=== PATIENT | male | born 1955 | race Caucasian/White ===

== ENCOUNTER 2019-10-21 11:51 | Outpatient (CLI) | payer OTHER ==
--- NOTE | 2019-10-21 12:19 | RAD ---
Exam: Single view of the chest and 2 views of the abdomen HISTORY: Abdominal pain COMPARISON: None FINDINGS: 2 views of the abdomen and a single view the chest shows a nonspecific, nonobstructive nohemi l gas pattern. Air is seen to the level of the rectum. No free air or air-fluid levels are seen on decubitus examination. The cardiomediastinal silhouette is normal in size. There is no evidence of consolidation, mass, or p leural effusion. IMPRESSION: Nonobstructive bowel gas pattern
== END 2019-10-21 11:52 | disposition home or self-care (01) ==
LOC: RAD 11:51
PROVIDERS: ATTEND Physical Medicine & Rehabilitation
DX: R10.9 Unspecified abdominal pain (principal); E11.9 Type 2 diabetes mellitus without complications; I10 Essential (primary) hypertension; G81.94 Hemiplegia, unspecified affecting left nondominant side
CPT/HCPCS: 74022

== ENCOUNTER 2020-02-08 12:09 | Inpatient (IN) | payer OTHER, SELFPAY ==
[2020-02-08] MEDS ORDERED: EPINEPHrine 1 MG/10 ML Abboject SYRINGE ONE (12:14)
--- NOTE | 2020-02-08 12:47 | RAD ---
EXAM: XR Chest 1 View Portable PROVIDED CLINICAL HISTORY: Altered mental status COMPARISON: 10/17/2019 FINDINGS: Cardiac and mediastinal silhouette is within normal limits. Bilateral lower lobe airspace disease. En dotracheal tube is noted, tip of which approximates will. Enteric catheter is noted, tip of which overlies left upper quadrant. Right subclavian central line, tip of which overlies expected location of SVC. No pleural fluid or pneumothorax apparent with limitations due to supine nature of study. IMPRESSION: 1. ET tube positioning as above. 2. Bilateral lower lobe airspace disease, compatible with pneumonia.
[2020-02-08 12:50] LABS: Actual Bicarbonate (HCO3a) 8.8 mEq/L (22-28); Analyzer IN Cardio ER; Base Excess (BEa) -23.9 mEq/L (-2.0 to +3.0); CO2 Tension 46.3 mmHg (35.0-45.0); Carboxyhemoglobin (COHb) 0.3 gm% (0.0-3.0); Hemoglobin (Hb) 12.8 g/dL (14.0-18.0); O2 Tension (PaO2), arterial 92.3 mmHg (> 80.0); Potassium - ABG Lab 7.35 mmol/L (3.70-5.30)
[2020-02-08] MEDS ORDERED: Cefepime 2 GM VIAL ONE (13:03)
[2020-02-08 13:11] LABS: ALT (SGPT) 7 U/L (8-55); AST (SGOT) 8 U/L (5-34); Albumin 3.1 g/dL (3.4-4.8); Alkaline Phosphatase 75 U/L (40-110); Anion Gap 32 mmol/L (10-20); Bilirubin, Total 0.3 mg/dL (0.2-1.2); CK (CPK) 87 U/L (30-200); Calc. Creatinine Clearance 0 mL/min (70-130); Calcium 8.4 mg/dL (7.8-10.44); Chloride 109 mmol/L (98-107); Estimated GFR-MDRD 5; Globulin 2.3 g/dL (2.4-3.5); Glucose 264 mg/dL (80-115); Protein, Total 5.4 g/dL (5.8-8.1); Sodium 141 mmol/L (136-145)
[2020-02-08 13:16] LABS: Carbon Dioxide 8 mmol/L (23-31); Potassium 8.1 mmol/L (3.5-5.1)
[2020-02-08 13:19] LABS: Hemoglobin 11.9 g/dL (14.0-18.0); Mean Corpuscular HGB CONC 30.7 g/dL (32.0-36.0); Mean Corpuscular Hemoglobin 30.7 pg (27.0-31.0); Platelet Count 319 thou/uL (130-400); RBC Distribution Width 12.5 % (11.5-14.5); Red Blood Cell (RBC) Count 3.89 mill/uL (4.70-6.10); White Blood Cell (WBC) Count 13.9 thou/uL (4.8-10.8)
[2020-02-08 13:23] LABS: BUN (Urea Nitrogen) 135 mg/dL (8.4-25.7)
[2020-02-08 13:24] LABS: Band 47 % (5-11); Hypochromia SLIGHT = 6-15 cells (100X) (0-5/hpf); Lymphocytes 13 % (21-51); MDiff Complete? YES; Macrocytosis SLIGHT = 6-15 cells (100X) (0-5/hpf); Monocytes 5 % (0-10); Neutrophil 30 % (42-75); Platelet Morphology Comment Appears Adequate; Polychromasia SLIGHT = 2-3 cells (100X) (0-2/hpf); Reactive Lymphocytes 4 % (0-10); Reflex for Review?? YES
--- NOTE | 2020-02-08 13:29 | CT ---
EXAM: CT Brain WO Con PROVIDED CLINICAL HISTORY: Altered mental status COMPARISON: 10/14/2019 FINDINGS: The ventricular system is unchanged in size and morphology. Encephalomalacia involving the right fron alejandro region is redemonstrated. There is development of more conspicuous right parietal cortical and subcortical hypodensity, compatible with age-indeterminate infarction. There is no evidence for intra cranial hemorrhage. There is no shift of the midline structures. Chronic microvascular ischemic changes are again seen. The extracranial soft tissues and osseous structures demonstrate no acute fin dings. Vascular calcification is noted. IMPRESSION: 1. No evidence for intracranial hemorrhage or mass effect. 2. Age-indeterminate infarction involving the right parietal region.
[2020-02-08] MEDS ORDERED: Vancomycin 1.5 GRAM/300 ML BAG 1.5 GM in Premix Bag 1 BAG IVPB SCH (13:30)
[2020-02-08] MEDS ORDERED: Vancomycin HCl 1.5 GM in Sodium Chloride 0.9% 250 ML 300 ML IVPB SCH (13:30)
--- NOTE | 2020-02-08 13:31 | CT ---
EXAM: CT cervical spine PROVIDED CLINICAL HISTORY: Altered mental status, found down COMPARISON: 09/30/2019 FINDINGS: No evidence for fracture or traumatic subluxation. No prevertebral soft tissue swelling apparent. Vi sualized lung apices appear clear. Vascular calcifications are seen involving the carotid system. Enteric and endotracheal tubes are partially visualized. Right subclavian central line is partially v isualized. IMPRESSION: No evidence for fracture or traumatic subluxation.
[2020-02-08] MEDS ORDERED: Insulin Regular 300 UNITS/3 ML VIAL ONE (13:45)
[2020-02-08] MEDS ORDERED: Dextrose 50% Abboject 50 ML SYRINGE ONE (13:45)
[2020-02-08] MEDS ORDERED: Sodium Bicarb 50 MEQ/50 ML Abboject 8.4% SYRINGE ONE (13:45)
[2020-02-08] MEDS ORDERED: Calcium Chloride 1 GM/10 ML Abboject SYRINGE ONE (13:45)
[2020-02-08 14:17] LABS: Puncture Site LRA
[2020-02-08 14:18] LABS: ALV-art Gradient 206.325 (0-20)
[2020-02-08 14:54] LABS: Hep B Surf Ag Non-Reactive S/CO (NonReactive)
[2020-02-08] MEDS ORDERED: Ventilator Sedation Protocol 1 EACH FS ONE (15:32)
[2020-02-08] MEDS ORDERED: Sodium Chloride 0.9% (PF) 10 ML VIAL FS PRN (15:42)
[2020-02-08] MEDS ORDERED: Morphine 2 MG/ML SYRINGE SLOW IVP PRN (15:45)
[2020-02-08] MEDS ORDERED: DISCONTINUE PREVIOUS NARCOTIC PAIN MEDICATIONS AND BENZODIAZEPINES FS SCH (15:45)
[2020-02-08] MEDS ORDERED: fentaNYL Citrate/PF 2,000 MCG in Sodium Chloride 0.9% 60 ML IV SCH (15:45)
[2020-02-08] MEDS ORDERED: Lorazepam 2 MG/ML VIAL SLOW IVP PRN (15:45)
[2020-02-08] MEDS ORDERED: Propofol BOLUS 1,000 MG/100 ML VIAL IV PRN (15:45)
[2020-02-08] MEDS ORDERED: Pantoprazole 40 MG VIAL IVP SCH (15:45)
[2020-02-08] MEDS ORDERED: Fentanyl BOLUS 250 ML IVPB PRN (15:45)
[2020-02-08] MEDS ORDERED: Albumin 5% 250 ML ONE (15:48)
[2020-02-08 16:02] LABS: Troponin I 0.025 ng/mL (< 0.028)
[2020-02-08] MEDS: Sodium Chloride 0.9% 1,000 ML IV SCH (16:30)
[2020-02-08] MEDS ORDERED: Albumin 25% 25 GM/100 ML BOT IVPB SCH (16:30)
[2020-02-08 17:39] LABS: Lactic Acid 7.8 mmol/L (0.5-2.2)
[2020-02-08 18:42] LABS: Bilirubin Negative (Negative); Blood, Urine 2+ (Negative); Clarity Turbid (Clear); Glucose, Urine (Dipstick) 150 mg/dL (Negative); Leukocyte 500 Leu/uL (Negative); Nitrite Negative (Negative); Protein, Urine (Dipstick) 200 mg/dL (Neg-Trace); RBC/HPF 21-50 HPF (0-3); Squamous Epithelial 0-3 HPF (0-3); Urobilinogen Normal mg/dL (Less than 2); WBC/HPF Greater than 50 HPF (0-3)
[2020-02-08 18:45] LABS: Bacteria/HPF 2+ HPF (None Seen)
[2020-02-08 18:58] LABS: Creatinine, Urine 147.35 mg/dL (63-166)
[2020-02-08 19:43] LABS: Actual Bicarbonate (HCO3a) 14.1 mEq/L (22-28); Base Excess (BEa) -10.9 mEq/L (-2.0 to +3.0); CO2 Tension 28.9 mmHg (35.0-45.0); Calcium, Ionized 1.07 mmol/L (1.12-1.30); Carboxyhemoglobin (COHb) 0.5 gm% (0.0-3.0); Hemoglobin (Hb) 11.8 g/dL (14.0-18.0); O2 Tension (PaO2), arterial 69.7 mmHg (> 80.0); Potassium - ABG Lab 4.32 mmol/L (3.70-5.30); pH, Arterial 7.31 (7.35-7.45)
--- NOTE | 2020-02-08 19:50 | CON ---
DATE OF CONSULTATION: 02/08/2020 Consulting physician-this is ICU protocol. I was not contacted by physician prior to the patient's admission. HISTORY OF PRESENT ILLNESS: The patient is a 64-year-old male, who was flown to this facility [facility]. He was found down at home by a friend. He was found to be hypothermic, hypotensive, and hypoxic on arrival. I am told he has a potassium above 8. He had a dialysis catheter inserted in the emergency room. He also had a central line placed. He was intubated on the scene prior to transport. My history is obtained from reading Dr. Christensen's note back in October 2019. PAST MEDICAL HISTORY: 1. Right cerebral watershed stroke. 2. Hypertension. 3. Diabetes mellitus. 4. Hyperlipidemia. PAST SURGICAL HISTORY: He has had hand surgery. FAMILY MEDICAL HISTORY: Remarkable for diabetes and leukemia. SOCIAL HISTORY: Smokes at least two packs of cigarettes per day. Drinks 6 to 8 beers per day, but I am not sure if he is currently drinking or smoking prior to admission. ALLERGIES: NONE. MEDICATIONS: Prior to admission, 1. Amlodipine 5 mg daily. 2. Metformin 850 mg b.i.d. 3. Tramadol 50 mg every 6 hours as needed. 4. Plavix 75 mg daily. 5. Lisinopril 10 mg daily. 6. Atorvastatin 40 mg daily. 7. Metoprolol 50 mg b.i.d. 8. Seroquel 25 mg nightly. REVIEW OF SYSTEMS: Cannot be obtained as the patient is currently intubated and on mechanical ventilation. PHYSICAL EXAMINATION: VITAL SIGNS: Heart rate 90, temperature is 93, blood pressure 88/57, O2 saturation 91%, and respiratory rate 27. GENERAL: This patient is obtunded, but may be chemically paralyzed from previous intubation. HEENT: Pupils are 3 mm, nonreactive. I cannot detect oculocephalic reflex. He has an endotracheal tube orally. NECK: No adenopathy or JVD. LUNGS: Clear but distant. CARDIOVASCULAR: S1 and S2. Regular without audible murmur. ABDOMEN: Soft. There is an old midline laparotomy scar that is horizontal. EXTREMITIES: He has a right femoral dialysis catheter. He has a right subclavian central line. He has no cyanosis or edema. No obvious muscle wasting. He has stage II decubitus ulcer in his sacral area. LABORATORY DATA: White blood cell count 13.9, hematocrit 38.9, and platelet count 319, with 30% neutrophils, 47% bands. His pH is 6.9, pCO2 of 46, and pO2 of 92, that is on assist control, rate 16, tidal volume 500, PEEP 5, FiO2 of 50%. His sodium is 141, potassium 8.1, chloride 109, CO2 of 8, BUN 135, creatinine 10.7, glucose , lactate 8.7, and glucose . BNP 142. Albumin 3.1. Chest x-ray shows some interstitial changes in both bases suspicious for pneumonia. CT of the head showed an infarction involving the right parietal region. CT of the neck was negative. ASSESSMENT: 1. Acute renal failure. 2. Severe hyperkalemia. 3. Profound metabolic acidosis. 4. Acute respiratory failure requiring mechanical ventilation. 5. Possible pneumonia. 6. Possible septicemia. PLAN: 1. The patient has received empiric antibiotics in the emergency room to include Levaquin, vancomycin, and cefepime. 2. Levophed, epinephrine as needed for blood pressure support. 3. Acute hemodialysis to correct acidosis, hyperkalemia. 4. Ventilatory support. 5. Follow up blood gas and labs after dialysis. 6. Given metabolic derangements, the patient's prognosis is extremely poor. Thank you for the referral. We will follow. Job ID: [id number]
[2020-02-08] MEDS: EPINEPHrine 4 MG in Dextrose 5% in Water 250 ML IV SCH (20:26)
[2020-02-08] MEDS: Norepinephrine 8 MG/0.9% NS 250 ML IVPB SCH (20:27)
--- NOTE | 2020-02-08 20:56 | HP ---
PRIMARY CARE PROVIDER: [facility]. CHIEF COMPLAINT: Unresponsive. HISTORY OF PRESENT ILLNESS: This is a 64-year-old male, who was life flighted to [facility] Emergency Department from [facility] after being found unresponsive by family members. The history is obtained after discussions with the emergency room attending, review of the EMS reports, as well as discussions with patient's spouse as the patient is currently mechanically ventilated and unresponsive. Initially, patient was evaluated by aero-medical personnel as the patient was found obtunded. The patient was intubated in the field and initiated on IV fluid resuscitation. En route, the patient received pressor agents including Levophed, presenting to the emergency room with systolics less than 100. Initial GCS was noted at 3T and the patient underwent general sepsis protocol. The patient underwent placement of a right subclavian central venous catheter and initiated on IV Levaquin, vancomycin, and cefepime. The patient also continued on Levophed infusion, as well as epinephrine and intravenous normal saline. Metabolic screening revealed a plethora of abnormalities including potassium of 8.1, CO2 level of 8, creatinine of 10.77, and lactic acid level of 8.7. Initial ABG showed pH of 6.90. The patient received hyperventilation in the emergency room in addition to calcium chloride, sodium bicarbonate, D50 and insulin. General Surgery was consulted for emergent Trialysis catheter placement and initiated on emergent hemodialysis. PAST MEDICAL HISTORY: 1. Hypertension. 2. Diabetes mellitus, type 2. 3. Alcohol abuse. 4. Tobacco abuse. 5. 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 6. Dysphagia. PAST SURGICAL HISTORY: Status post hand surgery. CURRENT MEDICATIONS: Based on review of the electronic medical record: 1. Norvasc 10 mg p.o. daily. 2. Lipitor 40 mg p.o. at bedtime. 3. Plavix 75 mg p.o. daily. 4. Enteric-coated aspirin 81 mg p.o. daily. 5. Folic acid 1 mg p.o. daily. 6. Lisinopril 10 mg p.o. daily. 7. Metformin 850 mg p.o. b.i.d. 8. Metoprolol tartrate 50 mg p.o. b.i.d. 9. Seroquel 25 mg p.o. at bedtime. 10. Trazodone 50 mg p.o. at bedtime. ALLERGIES: NO KNOWN DRUG ALLERGIES. FAMILY HISTORY: Father with diabetes and at age 93. Mother with history of leukemia at age 61. SOCIAL HISTORY: . Resides in the [facility] area. Smokes up to a pack of cigarettes daily. History of 6 to 8 beers per day, none currently. No illicit drug use. Ambulatory with a rolling walker and standby assistance. REVIEW OF SYSTEMS: Unobtainable as the patient is obtunded on mechanical ventilation. PHYSICAL EXAMINATION: VITAL SIGNS: Currently, blood pressure 88/57, pulse 90, respiratory rate 27, temperature 92.7 degrees Fahrenheit, O2 saturation 89% on 70% FiO2. GENERAL APPEARANCE: This is a 64-year-old male on current mechanical ventilation and Amador Hugger in place, ill appearing, unresponsive in the intensive care unit. HEENT: Pupils are minimally reactive to light and accommodation. Eyes do not track. No scleral icterus. Nares patent. Nicotine staining of the west noted. OP with ET tube in place. NECK: Supple. No cervical adenopathy. No thyromegaly. No carotid bruits. No JVD appreciated. CHEST: Diminished breath sounds bilaterally in the bases. Occasional expiratory wheeze. CARDIOVASCULAR EXAM: S1, S2 with tachycardia. No murmur, rub, or gallop appreciated. ABDOMEN: Obese, nontender, and nondistended. Bowel sounds are positive in all 4 quadrants. No palpable mass. No rebound or guarding appreciated. EXTREMITIES: Poor skin turgor peripherally. Prolonged capillary refill of 3 to 4 seconds. Diminished pulses at the dorsalis pedis and posterior tibial arteries. No peripheral edema appreciated. NEUROLOGIC: Sisi coma Scale of 3, Eye-opening 1, verbal 1, and motor 1. PERTINENT LABORATORY AND X-RAY FINDINGS: Sodium 141, potassium 8.1, chloride 109, CO2 of 8, anion gap of 32, BUN 135, creatinine 10.77, estimated GFR 5, glucose 264, lactic acid level 8.7, calcium 8.4. LFTs within normal limits. Total CK of 87. Troponin I negative x2. BNP 142. Albumin 3.1. CBC showed a white blood cell count of 13.9, hemoglobin 12, hematocrit 39, MCV 100, platelet count 319 with 30% neutrophils and 47% bands. ABG dated 02/08/2020 at 12:45 p.m. showed a pH of 6.90, pCO2 of 46, PO2 of 92, bicarb 8.8, O2 saturation 92% on 50% FiO2 with assist-control ventilation. Hepatitis B surface antigen nonreactive. Portable chest x-ray dated 02/08/2020, showed appropriate positioning of the endotracheal tube. Bilateral lower lobe airspace disease compatible with pneumonia. CT of the brain without contrast dated 02/08/2020, showed no intracranial hemorrhage or mass effect. Infarct of the right parietal region, old. CT of the cervical spine dated 02/08/2020, showed no evidence for fracture. EKG dated 02/08/2020, shows sinus mechanism with heart rates in the 90s. Normal R-wave progression noted in the precordial leads. No acute ST-T wave changes appreciated. ASSESSMENT AND PLAN: 1. Sepsis with septic shock. The patient admitted to the Critical Care Unit. We will continue epinephrine and Levophed infusion for pressor support. Continue intravenous normal saline boluses with 3 L. Suspect source is pulmonary, however, inconclusive at this time. Continue broad-spectrum IV antibiotic coverage with cefepime 1 g IV q.24 hours with additional Levaquin 750 mg q.48 hours and vancomycin. Blood and urine cultures pending. COVID-19 PCR pending. 2. Acute hypoxic respiratory failure. Multifactorial process including potential pneumonia. Continue mechanical ventilation with assist control and titrate to clinical response. Serial portable chest x-ray and ABG. Pulmonology/Critical Care Service monitoring and managing ventilation. 3. Severe hyperkalemia secondary to acute kidney injury. Emergent hemodialysis initiated after consultation with Nephrology Service. Continue serial electrolyte monitoring. 4. Acute kidney injury. Suspect multifactorial process including severe sepsis and shock with hemodynamic mediation in conjunction with potential infectious process. See above for management. Hemodialysis per Nephrology Service. 5. Severe lactic acidosis. Suspect multifactorial process. Continue broad-spectrum IV antibiotic therapy. Fluid replacement as clinically indicated. Serial lactic acid monitoring. 6. Diarrhea. Check stool study including Clostridium difficile antigen and toxin. 7. Prophylaxis. SCDs while in bed. Pepcid 20 mg IV b.i.d. Respiratory isolation secondary to the COVID-19 rule out. 8. Code status is full. Surrogate medical decision maker is the patient's spouse. Total critical care time is 40 minutes. Job ID: [id number]
[2020-02-08] MEDS ORDERED: Prevnar 13-Val Conj/PF 0.5 ML SYRINGE IM ONE (21:00)
[2020-02-08 21:36] LABS: ALT (SGPT) Less than 7 U/L (8-55); AST (SGOT) 7 U/L (5-34); Albumin 2.9 g/dL (3.4-4.8); Alkaline Phosphatase 53 U/L (40-110); Anion Gap 25 mmol/L (10-20); BUN (Urea Nitrogen) 48 mg/dL (8.4-25.7); Bilirubin, Total 0.4 mg/dL (0.2-1.2); Calc. Creatinine Clearance 15 mL/min (70-130); Calcium 7.5 mg/dL (7.8-10.44); Carbon Dioxide 14 mmol/L (23-31); Chloride 103 mmol/L (98-107); Estimated GFR-MDRD 15; Glucose 233 mg/dL (80-115); Potassium 4.5 mmol/L (3.5-5.1); Protein, Total 4.9 g/dL (5.8-8.1); Sodium 137 mmol/L (136-145)
--- NOTE | 2020-02-08 23:05 | CON ---
DATE OF CONSULTATION: HISTORY OF PRESENT ILLNESS: Mr. Fraser is a 64-year-old who presented to the ER due to unresponsiveness. He was found to be unresponsive and hypoxic. Empiric volume repletion has been given. The patient was placed on pressor support. As per history, the patient did report cough and shortness of breath. We are being consulted for his acute kidney injury with hyperkalemia. We are currently dialyzing this patient. We would plan to do a 2-to 3-hour hemodialysis due to the hyperkalemia. Chest x-ray also showed evidence of pneumonia. Minimal fluid is being done. We have given 2 L of fluid resuscitation with the dialysis today. REVIEW OF SYSTEMS: Not obtainable except for the history of shortness of breath and cough. PAST MEDICAL HISTORY: 1. Type 2 diabetes mellitus. 2. hyperlipidemia, recently status post CVA. PAST SURGICAL HISTORY: Status post hand surgery. FAMILY HISTORY: No family history of ESRD. TRAUMA: None. ALLERGIES: NONE IMMUNIZATIONS: Unknown. SOCIAL HISTORY: The patient is . Lives in the [facility] area. He has heavy alcohol intake, 6-8 beers per day in the past. No IV drug abuse. PHYSICAL EXAMINATION: VITAL SIGNS: Blood pressure is currently 101/70, heart rate 70. GENERAL: The patient is unresponsive, intubated on ventilator support. SKIN: Adequate turgor. HEENT: He has pinkish conjunctivae. Anicteric sclerae. No neck mass. No carotid bruits. No JVD. CHEST: No deformities. LUNGS: Harsh breath sounds. HEART: Normal sinus rhythm. No murmur. No gallops. No rubs. ABDOMEN: Globular, soft, nontender. No masses. EXTREMITIES: No edema. No deformities. LABORATORY DATA: A 12-lead EKG showed a prolonged QT, nonspecific EKG changes, low voltage, P waves were said to be normal. CT scan of the head, no acute intracranial abnormality, findings of encephalomalacia. February 08, 2020: White count 13.9, hemoglobin 11.9, sodium 141, potassium 8.1, chloride 109, carbon dioxide 8, BUN 135, creatinine 10.77, glucose 267, AST 8, ALT 7, albumin 3.1, lactic acid 8.7. Previous urinalysis, October 14, 2019, showed proteinuria. Chest x-ray of February 08, 2020, shows bilateral lower lobe airspace disease. MEDICATIONS: 1. Albumin 25 g x1 dose. 2. Cefepime 1 g IV daily. 3. Epinephrine drip. 4. Levaquin 750 mg every two days. 5. Morphine p.r.n. 6. Normal saline, status post bolus of 2 L. 7. Protonix 40 mg IV daily. 8. Vancomycin 1.5 g x1 dose. 9. Thiamine 100 mg b.i.d. ASSESSMENT AND PLAN: 1. Acute respiratory failure-secondary to a presumed pneumonia. On empiric IV antibiotics. The patient to be ruled out for COVID. 2. Acute respiratory failure, consider possible acute tubular necrosis. Empiric volume repletion to see if we could improve the renal function with volume alone. In addition, an emergent hemodialysis was done due to the azotemia, hyperkalemia and metabolic acidosis. We will do hemodialysis for a total of 3 hours. We will repeat the dialysis regimen tomorrow. We are not removing any fluid due to the low blood pressure. His overall prognosis remains poor and guarded. 3. Agree with current management. Job ID: [id number] CHRIS
[2020-02-08] MEDS: Propofol 1,000 MG/100 ML VIAL IV PRN (23:34)
[2020-02-08 23:39] LABS: Puncture Site L BRACHIAL
[2020-02-08 23:40] LABS: ALV-art Gradient 393.275 (0-20)
[2020-02-09] MEDS: Sodium Chloride 0.9% 1,000 ML IV SCH ×3 (01:11→21:30)
[2020-02-09] MEDS: EPINEPHrine 4 MG in Dextrose 5% in Water 250 ML IV SCH ×2 (01:11→06:06)
[2020-02-09] MEDS: Norepinephrine 8 MG/0.9% NS 250 ML IVPB SCH ×5 (01:11→17:34)
[2020-02-09 04:08] LABS: ALT (SGPT) Less than 7 U/L (8-55); AST (SGOT) 9 U/L (5-34); Albumin 2.7 g/dL (3.4-4.8); Alkaline Phosphatase 48 U/L (40-110); Anion Gap 21 mmol/L (10-20); BUN (Urea Nitrogen) 52 mg/dL (8.4-25.7); Bilirubin, Total 0.3 mg/dL (0.2-1.2); Calc. Creatinine Clearance 14 mL/min (70-130); Calcium 7.2 mg/dL (7.8-10.44); Carbon Dioxide 15 mmol/L (23-31); Chloride 104 mmol/L (98-107); Estimated GFR-MDRD 13; Globulin 1.9 g/dL (2.4-3.5); Glucose 343 mg/dL (80-115); Phosphorus 2.1 mg/dL (2.3-4.7); Potassium 4.2 mmol/L (3.5-5.1); Protein, Total 4.6 g/dL (5.8-8.1); Sodium 136 mmol/L (136-145)
[2020-02-09 04:49] LABS: Band 55 % (5-11); Hemoglobin 10.9 g/dL (14.0-18.0); Lymphocytes 15 % (21-51); MDiff Complete? YES; Mean Corpuscular HGB CONC 32.9 g/dL (32.0-36.0); Mean Corpuscular Hemoglobin 31.2 pg (27.0-31.0); Mean Platelet Volume 9.2 fL (7.4-10.4); Metamyelocyte 6 % (0-0); Monocytes 7 % (0-10); Myelocyte 1 % (0-0); Neutrophil 16 % (42-75); Platelet Count 188 thou/uL (130-400); RBC Distribution Width 12.5 % (11.5-14.5); Red Blood Cell (RBC) Count 3.48 mill/uL (4.70-6.10); White Blood Cell (WBC) Count 2.6 thou/uL (4.8-10.8)
[2020-02-09 07:08] LABS: Actual Bicarbonate (HCO3a) 13.4 mEq/L (22-28); Base Excess (BEa) -10.1 mEq/L (-2.0 to +3.0); Calcium, Ionized 1.05 mmol/L (1.12-1.30); Carboxyhemoglobin (COHb) 0.4 gm% (0.0-3.0); Hemoglobin (Hb) 10.5 g/dL (14.0-18.0); O2 Tension (PaO2), arterial 93.9 mmHg (> 80.0); Potassium - ABG Lab 4.15 mmol/L (3.70-5.30); pH, Arterial 7.38 (7.35-7.45)
[2020-02-09 07:09] LABS: CO2 Tension 23.3 mmHg (35.0-45.0); Puncture Site LRA
[2020-02-09 07:10] LABS: ALV-art Gradient 376.075 (0-20)
[2020-02-09] MEDS ORDERED: Dextrose 50% Abboject 50 ML SYRINGE SLOW IVP PRN (07:51)
[2020-02-09] MEDS ORDERED: Dextrose 5% in Water 1,000 ML IV PRN (07:51)
--- NOTE | 2020-02-09 07:55 | RAD ---
EXAM: CHEST ONE VIEW HISTORY: Pneumonia COMPARISON: 02/08/2020 FINDINGS: Endotracheal tube, nasogastric tube, and right subclavian central venous catheter remain in place. Th ere are increased interstitial and patchy parenchymal perihilar opacities with greater patchy opacity present at the left lung base. No obvious pleural effusion is seen. Cardiac silhouette is wit hin normal limits. Vascular calcifications are seen in the thoracic aorta. No other interval change from prior exam. IMPRESSION: Bilateral perihilar interstitial and patchy parenchymal opacities which have increased when compared to the prior exam. Greater patchy parenchymal opacity is seen at the left lung base. Findings may be related to bilateral pneumonia and possibly atypical pneumonia. Asymmetric pulmonary edema is not entirely excluded.
--- NOTE | 2020-02-09 08:23 | PRG ---
DATE OF SERVICE: 02/09/2020 SUBJECTIVE: The patient remains intubated on mechanical ventilation. He underwent emergent dialysis yesterday afternoon. He is now arousable. He can follow commands with his right side, but seems to have had an old stroke on his left side and cannot move that side. OBJECTIVE: VITAL SIGNS: His temperature is 100, pulse 104, blood pressure 124/73, and O2 saturation 100%. Intake 4049, output 428. HEENT: Will open his eyes. He has an endotracheal tube in his mouth. NECK: No adenopathy or JVD. LUNGS: Clear anteriorly. CARDIOVASCULAR: S1 and S2 regular. He is on Levophed and epinephrine drips. ABDOMEN: Soft and nontender to palpation. EXTREMITIES: No clubbing, cyanosis, or edema. LABORATORY DATA: Sodium 136, potassium 4.2, chloride 104, CO2 of 15, BUN 52, creatinine 4.5, glucose 343, calcium 7.2, phosphorus 2.1, and albumin 2.7. His blood gas shows a pH of 7.38, pCO2 of 23, and pO2 of 93 on assist control rate 27, tidal volume 500, PEEP of 8, and FiO2 of 70%. White blood cell count 2.6, hematocrit 33.1, and platelet count 188. ASSESSMENT: 1. Acute respiratory failure requiring mechanical ventilation. 2. Acute renal failure. 3. Severe hyperkalemia, corrected with dialysis. 4. Possible pneumonia and septicemia. 5. Likely severely volume depleted. PLAN: 1. In this case, I would go ahead and continue hydrating the patient. We expect dialysis later today for treatment of acidosis. I have switched him over to a SIMV mode of ventilation. We will try to wean his epinephrine first, than his norepinephrine. He will continue on the antibiotics and we will follow culture results as a result. 2. He can come out of isolation once his COVID serology test comes back negative. 3. Would withhold tube feedings until he is on less vasopressors. 4. Continue Protonix for GI prophylaxis. 5. Probably start subcu heparin tomorrow. Of note, he would be getting heparin during dialysis. Job ID: [id number]
[2020-02-09] MEDS: Pantoprazole 40 MG VIAL IVP SCH (09:27)
[2020-02-09 10:26] LABS: SARS-CoV-2 MS2 Positive; SARS-CoV-2 N Gene Negative; SARS-CoV-2 S Gene Negative; SARS-CoV-2 orf1ab Negative
[2020-02-09] MEDS: Propofol 1,000 MG/100 ML VIAL IV PRN ×2 (10:32→17:33)
--- NOTE | 2020-02-09 11:06 | PRG ---
DATE OF SERVICE: 02/09/2020 SUBJECTIVE: Mr. Fraser is a 64-year-old white male, who was seen for an acute kidney injury. He was initiated with dialysis due to the hyperkalemia and worsening renal dysfunction. Potassium was initially noted at 8.1 on admission, but after dialysis, this has improved to 4.2. Urine sediment did not show any pigmented granular casts. It was more suggestive of a possible prerenal azotemia. Due to the hematuria and proteinuria, we will rule out for a possible vasculitis with this patient. He is also being ruled out for COVID infection. No acute events noted last night. OBJECTIVE: VITAL SIGNS: Blood pressure 129/83, heart rate 111, respiratory rate 23, temperature is 100.2, O2 saturation 100%. GENERAL: Noted to be unresponsive, intubated on ventilator support. SKIN: Adequate turgor. HEENT: He has pinkish conjunctivae. Anicteric sclerae. NECK: No neck mass. No carotid bruits. No JVD. CHEST: No deformities. LUNGS: Harsh breath sounds. HEART: Normal sinus rhythm. No murmur. No gallops. No rubs. ABDOMEN: Globular, soft, and nontender. EXTREMITIES: No edema. No deformities. MEDICATIONS: Medications of February 09, 2020, were reviewed. LABORATORY DATA: Laboratories of February 09, 2020: White count 2.6, hemoglobin 10.9. Sodium 136, potassium 4.2, chloride 104, carbon dioxide 15, BUN 52, creatinine 4.5, glucose 343, calcium 7.2, albumin 2.7. Chest x-ray showed diffuse infiltrates. ASSESSMENT AND PLAN: 1. Acute kidney injury - possibility of hemodynamically-mediated dysfunction remains. Although, I could not rule out a superimposed acute tubular necrosis. Due to the proteinuria and hematuria, we will check for ANCA and GERMÁN with this patient. Continue supportive dialysis. We will plan for 3-hour hemodialysis. He is currently undergoing hemodialysis. Minimal fluid is being removed since the filling pressures based on the dialysis measurement shows to be on the low side. In addition, chest x-ray was suggestive more of an atypical pneumonia. Overall prognosis remains guarded. 2. Pneumonia - on empiric IV antibiotics, being ruled out for COVID-19. 3. Hyperkalemia, resolved. Job ID: [id number]
[2020-02-09] MEDS: Insulin Regular 300 UNITS/3 ML VIAL SC PRN (13:06)
[2020-02-09] MEDS: Cefepime 1 GM in Sodium Chloride 0.9% 100 ML IVPB SCH (13:07)
--- NOTE | 2020-02-09 15:33 | ULT ---
Bilateral renal ultrasound CLINICAL INDICATION: Renal failure. COMPARISON: None FINDINGS: Right kidney: There is no evidence of a renal mass, renal calculus, or hydronephrosis seen. The right kidney measures 11.1 cm x 5.5 cm. Left kidney: There is no evidence of a renal mass, renal calculus, or hydronephrosis. The left kidney measures 10.7 cm x 5.4 cm. Urinary bladder: Decompressed with Cleaning catheter in place. Urinary bladder is unable to be evaluated on this exam. IMPRESSION: No evidence of hydronephrosis.
--- NOTE | 2020-02-09 17:17 | PDOC.HOSPP ---
- Subjective Encounter Date: 02/09/20 Encounter Time: 17:15 Subjective: f/u for septic shock/PAULETTE with hyperkalemia/resp failure on mech vent and s/p emergent HD. More alert per nursing. Currently on Levophed gtt after d/c of Epinephrine gtt. - Objective Vital Signs & Weight: Vital Signs (12 hours) Pulse Resp BP Pulse Ox 02/09/20 16:00 22 H 02/09/20 15:32 22 H 02/09/20 14:44 107 H 102/61 02/09/20 14:00 22 H 02/09/20 12:00 24 H 02/09/20 10:11 125 H 134/64 02/09/20 10:00 24 H 02/09/20 08:00 22 H 100 02/09/20 06:57 106 H 122/67 02/09/20 06:00 27 H Weight Admit Weight 132 lb 15.02 oz Weight 132 lb 15.02 oz Most Recent Monitor Data Heart Rate from ECG 102 NIBP 112/69 NIBP BP-Mean 83 Respiration from ECG 22 SpO2 100 I&O: 02/08/20 02/09/20 02/10/20 06:59 06:59 06:59 Intake Total 4049.4 227 Output Total 428 125 Balance 3621.4 102 Result Diagrams: 02/09/20 03:35 02/09/20 03:35 Additional Labs: Accuchecks 02/09/20 10:48 POC Glucose 198 H Microbiology 02/08/20 13:08 Central Line - Right Subclavian Vein Blood Culture - Preliminary Specimen has been received and culture in progress. No Growth to date. 02/08/20 12:37 Port - Right Subclavian Vein Blood Culture - Preliminary Specimen has been received and culture in progress. No Growth to date. Laboratory Tests 02/08/20 02/08/20 02/08/20 12:37 12:37 12:42 WBC 13.9 H Hgb 11.9 L MCV 100.0 H Neutrophils % (Manual) 30 L Band Neuts % (Manual) 47 H Carbon Dioxide 8 L* BUN 135 H Creatinine 10.77 H COVID-19 PCR Not Detected Hep Bs Antigen 02/08/20 02/08/20 02/09/20 14:02 20:35 03:35 WBC Hgb MCV Neutrophils % (Manual) 16 L Band Neuts % (Manual) 55 H Carbon Dioxide 14 L BUN 48 H Creatinine 4.17 H COVID-19 PCR Hep Bs Antigen Non-Reactive Radiology Reviewed by me: Yes (PCXR - increased infiltrates bilat L>R, lines/ tubes in place) EKG Reviewed by me: Yes (Tele - Sinus tachycardia) Hospitalist ROS - Medication Medications: Active Medications Generic Name Dose Route Start Last Admin Trade Name Freq PRN Reason Stop Dose Admin Sodium Chloride 1,000 mls @ 100 mls/hr 02/08/20 15:45 02/09/20 13:01 Normal Saline 0.9% IV 1,000 mls .Q10H SAJAN Administration Cefepime HCl 1 gm/ Sodium 100 mls @ 200 mls/hr 02/09/20 13:00 02/09/20 13:07 Chloride IVPB 100 mls 1300 SAJAN Administration Norepinephrine Bitartrate 250 mls @ 0 mls/hr 02/08/20 15:45 02/09/20 13:55 Levophed IVPB 250 mls INF SAJAN Administration Protocol Titrate Thiamine HCl 100 mg/ Sodium 51 mls @ 100 mls/hr 02/08/20 16:00 02/09/20 03:31 Chloride IVPB 02/12/20 04:31 51 mls 0400,1600 SAJAN Administration Epinephrine 4 mg/ Dextrose/ 254 mls @ 0 mls/hr 02/08/20 16:15 02/09/20 06:06 Water IV 254 mls INF SAJAN Administration Protocol Titrate Insulin Human Regular 0 units 02/09/20 07:51 02/09/20 13:06 Humulin R SC 2 unit .MODERATE SLIDING SC PRN Administration Moderate Correctional Scale Lorazepam 2 mg 02/08/20 15:45 02/09/20 13:54 Ativan SLOW IVP 03/09/20 15:45 2 mg Q1H PRN Administration Breakthrough agitation Pantoprazole Sodium 40 mg 02/09/20 09:00 02/09/20 09:27 Protonix IVP 40 mg DAILY SAJAN Administration Propofol 1,000 mg 02/08/20 15:45 02/09/20 10:32 Diprivan IV 03/09/20 15:45 1,000 mg INF PRN Administration TO ACHIEVE GOAL RASS Protocol Sodium Chloride 10 ml 02/08/20 15:42 02/09/20 09:27 Normal Saline Pf FS 10 ml PRN PRN Administration RECONSTITUTION - Exam General - other findings: mech ventilation, somnolent/sedate Eye: PERRL ENT: normocephalic atraumatic, no oropharyngeal lesions ENT - other findings: ETT in place Neck: supple, symmetric, no JVD, no thyromegaly Heart: no murmur, no gallops, no rubs, normal peripheral pulses Heart - other findings: S1, S2 tachycardic Respiratory - other findings: diminished bilat, coarse sounds bilat Gastrointestinal: soft, non-tender, non-distended, normal bowel sounds, no palpable masses Extremities: no cyanosis, no clubbing, no edema Skin: normal turgor Neurological - other findings: sedate on mech ventilation Psychiatric: somnolent, lethargic Hosp A/P (1) Sepsis with acute renal failure and septic shock Code(s): A41.9 - SEPSIS, UNSPECIFIED ORGANISM; R65.21 - SEVERE SEPSIS WITH SEPTIC SHOCK; N17.9 - ACUTE KIDNEY FAILURE, UNSPECIFIED Status: Acute Qualifiers: Sepsis type: sepsis due to unspecified organism Acute renal failure type: with acute tubular necrosis Qualified Code(s): A41.9 - Sepsis, unspecified organism; R65.21 - Severe sepsis with septic shock; N17.0 - Acute kidney failure with tubular necrosis Plan: Continue critical support, Continue Cefepime/Levaquin, Levophed for pressor support (2) Acute respiratory failure with hypoxia Code(s): J96.01 - ACUTE RESPIRATORY FAILURE WITH HYPOXIA Status: Acute Plan: Continue SIMV FIO2 45%, pulmonary supportive mgmt (3) PAULETTE (acute kidney injury) Code(s): N17.9 - ACUTE KIDNEY FAILURE, UNSPECIFIED Status: Acute Plan: Requiring HD, serial monitoring, avoid nephrotoxic meds and limit contrast (4) Hyperkalemia Code(s): E87.5 - HYPERKALEMIA Status: Acute Plan: Secondary to PAULETTE, improved after HD (5) Lactic acidosis Code(s): E87.2 - ACIDOSIS Status: Acute Plan: Secondary to sepsis/PAULETTE, serial monitoring, no Metformin - Plan continue antibiotics, social services specialist, respiratory therapy, DVT proph w/SCDs Continue critical support Levophed for pressor support Holding TF's until off pressors HD per Renal service Continue Cefepime/Levaquin AM lab: BMP, CBC, Mg++, PO3
[2020-02-10] MEDS: Sodium Chloride 0.9% 1,000 ML IV SCH ×3 (02:07→19:42)
[2020-02-10 04:43] LABS: Phosphorus 1.6 mg/dL (2.3-4.7)
[2020-02-10 05:22] LABS: Band 57 % (5-11); Hemoglobin 9.4 g/dL (14.0-18.0); Lymphocytes 7 % (21-51); MDiff Complete? YES; Mean Corpuscular HGB CONC 33.6 g/dL (32.0-36.0); Mean Corpuscular Hemoglobin 31.5 pg (27.0-31.0); Mean Corpuscular Volume 93.6 fL (78.0-98.0); Mean Platelet Volume 9.2 fL (7.4-10.4); Metamyelocyte 2 % (0-0); Monocytes 2 % (0-10); Myelocyte 1 % (0-0); Neutrophil 31 % (42-75); Platelet Count 116 thou/uL (130-400); Platelet Morphology Comment Appears Adequate; RBC Distribution Width 12.6 % (11.5-14.5); Red Blood Cell (RBC) Count 2.99 mill/uL (4.70-6.10); White Blood Cell (WBC) Count 11.6 thou/uL (4.8-10.8)
[2020-02-10] MEDS: Propofol 1,000 MG/100 ML VIAL IV PRN (07:09)
[2020-02-10 07:25] LABS: Anion Gap 17 mmol/L (10-20); BUN (Urea Nitrogen) 37 mg/dL (8.4-25.7); Calc. Creatinine Clearance 21 mL/min (70-130); Calcium 7.5 mg/dL (7.8-10.44); Carbon Dioxide 19 mmol/L (23-31); Chloride 106 mmol/L (98-107); Estimated GFR-MDRD 21; Glucose 115 mg/dL (80-115); Potassium 3.6 mmol/L (3.5-5.1); Sodium 138 mmol/L (136-145)
[2020-02-10 07:34] LABS: Actual Bicarbonate (HCO3a) 17.9 mEq/L (22-28); Base Excess (BEa) -4.2 mEq/L (-2.0 to +3.0); Calcium, Ionized 1.04 mmol/L (1.12-1.30); Carboxyhemoglobin (COHb) 0.1 gm% (0.0-3.0); Hemoglobin (Hb) 9.8 g/dL (14.0-18.0); O2 Tension (PaO2), arterial 75.5 mmHg (> 80.0); Potassium - ABG Lab 3.57 mmol/L (3.70-5.30)
[2020-02-10 07:37] LABS: CO2 Tension 23.6 mmHg (35.0-45.0)
[2020-02-10 07:38] LABS: Puncture Site RBA
[2020-02-10 08:48] LABS: Albumin 2.4 g/dL (3.4-4.8)
[2020-02-10 08:51] LABS: Globulin 2.2 g/dL (2.4-3.5); Protein, Total 4.6 g/dL (5.8-8.1)
[2020-02-10 08:52] LABS: Bilirubin, Total 0.5 mg/dL (0.2-1.2)
[2020-02-10 08:53] LABS: Alkaline Phosphatase 65 U/L (40-110)
[2020-02-10 08:56] LABS: ALT (SGPT) Less than 7 U/L (8-55); AST (SGOT) 17 U/L (5-34); CK (CPK) 114 U/L (30-200)
--- NOTE | 2020-02-10 09:04 | PRG ---
DATE OF SERVICE: 02/10/2020 35 minutes critical care time. SUBJECTIVE: The patient remains intubated on mechanical ventilation. Neurologically, I can get him to wiggle his toes and nod a little bit, but he does not follow any more commands than that. OBJECTIVE: VITAL SIGNS: Temperature is 100.4, pulse 103, blood pressure 114/75, and O2 saturation 100%. 24-hour intake 3757, output 385. HEENT: Unremarkable. NECK: No adenopathy or JVD. LUNGS: Clear anteriorly. CARDIAC: S1 and S2. Regular. ABDOMEN: Soft. EXTREMITIES: No edema. IMAGING STUDIES: His chest x-ray shows improved bilateral infiltrates. LABORATORY DATA: Sodium 138, potassium 3.6, chloride 106, CO2 of 19, BUN 37, creatinine 3.0, and glucose 115. White blood cell count 11.6, hematocrit 27.9, and platelet count 116. A pH 7.5, PCO2 24, PO2 75 on a SIMV rate 22, tidal volume 500, PEEP 8, pressure support 15, and FiO2 45%. IMAGING STUDIES: Chest x-ray shows some improvement. ASSESSMENT: 1. Acute renal failure. 2. Acute respiratory failure, requiring mechanical ventilation. 3. Corrected hyperkalemia. 4. Pneumonia with septicemia. 5. Severe volume depletion. PLAN: 1. Continue IV fluids. 2. Wean off Levophed as tolerated. 3. Decreased respiratory support on mechanical ventilation. 4. Initiate enteral tube feeds. Job ID: [id number]
[2020-02-10] MEDS: Heparin 5,000 UNITS/ML VIAL SC SCH ×2 (09:44→20:48)
[2020-02-10] MEDS: Pantoprazole 40 MG VIAL IVP SCH (09:45)
--- NOTE | 2020-02-10 10:20 | PRG ---
DATE OF SERVICE: 02/10/2020 SUBJECTIVE: Mr. Fraser is a 64-year-old white male, who was admitted for unresponsiveness. During the initial evaluation, he was found to have a pneumonia and had concomitant hyperkalemia with acute kidney injury. He was initiated on hemodialysis. He also ruled out for COVID. The patient is still noted to be intubated. He is still unresponsive. No acute events noted last night. OBJECTIVE: VITAL SIGNS: Blood pressure 126/72, heart rate 106, respiratory rate 21, O2 saturation 100%, and temperature 100.2. GENERAL: Noted to be unresponsive, intubated, on ventilator support. SKIN: Adequate turgor. HEENT: Pinkish conjunctivae. Anicteric sclerae. No neck mass. No carotid bruits. No JVD. CHEST: No deformities. LUNGS: Harsh breath sounds. HEART: Normal sinus rhythm. No murmur. No gallops. No rubs. ABDOMEN: Globular, soft, and nontender. No masses. EXTREMITIES: No edema. No deformities. MEDICATIONS: Medications of February 10, 2020, were reviewed. LABORATORY DATA: Laboratories of February 10, 2020: White count 11.6, hemoglobin 9.4. Sodium 138, potassium 3.6, chloride 106, carbon dioxide 19, BUN 37, creatinine 3.02, glucose 115, calcium 7.5, phosphorus 1.6, and albumin 2.4. ASSESSMENT AND PLAN: 1. Acute kidney injury - urine sediment did not suggest any acute tubular necrosis. However, due to the proteinuria and hematuria, we will rule out the patient for a possible vasculitis - GERMÁN and ANCA have been ordered. We will continue current dialysis regimen. Minimal fluid removal due to the low blood pressure. We feel that this patient may be volume depleted. It is still possible that the acute kidney injury may have all been hemodynamically-mediated renal dysfunction. 2. Pneumonia, on empiric IV antibiotics. The patient ruled out for COVID. Overall, agree with current management. Recheck CBC and basic metabolic panel in a.m. Please note, GERMÁN, ANCA are still pending. Job ID: [id number]
[2020-02-10] MEDS ORDERED: PHOS-NAK 1 PKT PACK PO SCH (10:45)
--- NOTE | 2020-02-10 13:03 | RAD ---
AP CHEST: HISTORY: Pneumonia. COMPARISON: 02/09/2020. FINDINGS: Bilateral infiltrates again noted. Hazy infiltrate in the right mid lung with a slightly more conflu ent infiltrate in the right lower lung. Hazy infiltrate in the left lower lung field obscuring the l eft hemidiaphragm. Evidence of small left effusion. ET tube, NG tube, and central line remain uncha nged. IMPRESSION: Bilateral infiltrates not significantly changed. POS: AGW
[2020-02-10 16:08] LABS: ANA Symphony (Qualitative) Negative (Negative); ANA Symphony (Quantitative) 0.2 Ratio (< 0.7 Negative); dsDNA IgG Antibody Less than 0.5 IU/mL (<10 Negative)
[2020-02-10] MEDS ORDERED: Digoxin 0.5 MG/2 ML AMP SLOW IVP SCH (16:45)
[2020-02-10] MEDS: Cefepime 1 GM in Sodium Chloride 0.9% 100 ML IVPB SCH (16:59)
--- NOTE | 2020-02-10 17:15 | PDOC.HOSPP ---
- Subjective Encounter Date: 02/10/20 Encounter Time: 17:15 Subjective: f/u for resp failure on mech ventilation, sepsis/shock and PNA on Cefepime. Nursing reports A-fib RVR starting this afternoon. Given Digoxin/Cardizem with HR's in 150's currently. - Objective Vital Signs & Weight: Vital Signs (12 hours) Pulse Resp Pulse Ox 02/10/20 14:23 121 H 02/10/20 10:51 104 H 02/10/20 08:00 18 100 02/10/20 07:23 101 H 02/10/20 06:00 22 H Weight Admit Weight 132 lb 15.02 oz Weight 132 lb 15.02 oz Most Recent Monitor Data Heart Rate from ECG 133 NIBP 130/70 NIBP BP-Mean 90 Respiration from ECG 30 SpO2 94 I&O: 02/09/20 02/10/20 02/11/20 06:59 06:59 06:59 Intake Total 4049.4 3757 Output Total 428 385 40 Balance 3621.4 3372 -40 Result Diagrams: 02/10/20 03:45 02/10/20 03:45 Additional Labs: Accuchecks 02/10/20 02/10/20 02/09/20 06:08 00:50 19:53 POC Glucose 114 H 117 H 119 H Microbiology 02/08/20 13:08 Central Line - Right Subclavian Vein Blood Culture - Preliminary Specimen has been received and culture in progress. No Growth to date. 02/08/20 13:08 Central Line - Right Subclavian Vein Blood Culture - Preliminary NO GROWTH AT 48 HOURS 02/08/20 12:37 Port - Right Subclavian Vein Blood Culture - Preliminary Specimen has been received and culture in progress. No Growth to date. 02/08/20 12:37 Port - Right Subclavian Vein Blood Culture - Preliminary NO GROWTH AT 48 HOURS Laboratory Tests 02/08/20 02/08/20 02/08/20 12:37 12:37 12:42 WBC 13.9 H Hgb 11.9 L MCV 100.0 H Neutrophils % (Manual) 30 L Band Neuts % (Manual) 47 H Carbon Dioxide 8 L* BUN 135 H Creatinine 10.77 H Phosphorus GERMÁN Screen GERMÁN Scrn Qualitative GERMÁN Scrn Quantitative Anti-ds DNA IgG Ab COVID-19 PCR Not Detected Hep Bs Antigen 0502/08/20 02/09/20 14:02 20:35 03:35 WBC 2.6 L Hgb 10.9 L MCV Neutrophils % (Manual) 16 L Band Neuts % (Manual) 55 H Carbon Dioxide 14 L BUN 48 H Creatinine 4.17 H Phosphorus GERMÁN Screen GERMÁN Scrn Qualitative GERMÁN Scrn Quantitative Anti-ds DNA IgG Ab COVID-19 PCR Hep Bs Antigen Non-Reactive 02/09/20 02/10/20 02/10/20 10:40 03:45 03:45 WBC Hgb MCV Neutrophils % (Manual) Band Neuts % (Manual) 57 H Carbon Dioxide BUN Creatinine Phosphorus 1.6 L GERMÁN Screen Negative GERMÁN Scrn Qualitative Negative GERMÁN Scrn Quantitative 0.2 Anti-ds DNA IgG Ab Less than 0.5 COVID-19 PCR Hep Bs Antigen Radiology Reviewed by me: Yes (PCXR - bilat infiltrates worse in RLL, lines/ tubes in position) EKG Reviewed by me: Yes (Tele - A-fib in 150's) Hospitalist ROS - Medication Medications: Active Medications Generic Name Dose Route Start Last Admin Trade Name Freq PRN Reason Stop Dose Admin Heparin Sodium (Porcine) 5,000 units 02/10/20 09:00 02/10/20 09:44 Heparin SC 5,000 units BID SAJAN Administration Sodium Chloride 1,000 mls @ 100 mls/hr 02/08/20 15:45 02/10/20 09:45 Normal Saline 0.9% IV Not Given .Q10H SAJAN Cefepime HCl 1 gm/ Sodium 100 mls @ 200 mls/hr 02/09/20 13:00 02/10/20 16:59 Chloride IVPB 100 mls 1300 SAJAN Administration Norepinephrine Bitartrate 250 mls @ 0 mls/hr 02/08/20 15:45 02/09/20 17:34 Levophed IVPB 250 mls INF SAJAN Administration Protocol Titrate Thiamine HCl 100 mg/ Sodium 51 mls @ 100 mls/hr 02/08/20 16:00 02/10/20 17:01 Chloride IVPB 02/12/20 04:31 51 mls 0400,1600 SAJAN Administration Insulin Human Regular 0 units 02/09/20 07:51 02/09/20 13:06 Humulin R SC 2 unit .MODERATE SLIDING SC PRN Administration Moderate Correctional Scale Lorazepam 2 mg 02/08/20 15:45 02/09/20 13:54 Ativan SLOW IVP 03/09/20 15:45 2 mg Q1H PRN Administration Breakthrough agitation Pantoprazole Sodium 40 mg 02/09/20 09:00 02/10/20 09:45 Protonix IVP 40 mg DAILY SAJAN Administration Propofol 1,000 mg 02/08/20 15:45 02/10/20 07:09 Diprivan IV 03/09/20 15:45 1,000 mg INF PRN Administration TO ACHIEVE GOAL RASS Protocol Sodium Chloride 10 ml 02/08/20 15:42 02/09/20 09:27 Normal Saline Pf FS 10 ml PRN PRN Administration RECONSTITUTION - Exam General Appearance: ill appearing General - other findings: sedate [facility] Eye: PERRL ENT: normocephalic atraumatic, no oropharyngeal lesions ENT - other findings: ETT in place Neck: supple, symmetric, no JVD, no thyromegaly Heart: no murmur, no gallops, normal peripheral pulses, irregular Heart - other findings: S1, S2 tachycardic Respiratory: CTAB, no wheezes, no rales, no ronchi, normal chest expansion Gastrointestinal: soft, non-tender, non-distended, normal bowel sounds, no palpable masses Extremities: no cyanosis, no edema Skin: normal turgor Musculoskeletal: generalized weakness Psychiatric: somnolent, lethargic Hosp A/P (1) Atrial fibrillation with RVR Code(s): I48.91 - UNSPECIFIED ATRIAL FIBRILLATION Status: Acute Plan: Bolus NS 1L x 1 now, increase Cardizem 10mgl/h, Digoxin 0.25mg IV (2) Sepsis with acute renal failure and septic shock Code(s): A41.9 - SEPSIS, UNSPECIFIED ORGANISM; R65.21 - SEVERE SEPSIS WITH SEPTIC SHOCK; N17.9 - ACUTE KIDNEY FAILURE, UNSPECIFIED Status: Acute Qualifiers: Sepsis type: sepsis due to unspecified organism Acute renal failure type: with acute tubular necrosis Qualified Code(s): A41.9 - Sepsis, unspecified organism; R65.21 - Severe sepsis with septic shock; N17.0 - Acute kidney failure with tubular necrosis Plan: continue Cefepime IV (3) Acute respiratory failure with hypoxia Code(s): J96.01 - ACUTE RESPIRATORY FAILURE WITH HYPOXIA Status: Acute Plan: Continue mech ventilation SIMV, serial ABG's, PCXR in am (4) PAULETTE (acute kidney injury) Code(s): N17.9 - ACUTE KIDNEY FAILURE, UNSPECIFIED Status: Acute Plan: HD per Renal service (5) Hyperkalemia Code(s): E87.5 - HYPERKALEMIA Status: Acute Plan: Resolved with HD (6) Lactic acidosis Code(s): E87.2 - ACIDOSIS Status: Acute - Plan continue antibiotics, [employer] and crm, respiratory therapy, DVT proph w/SCDs Continue critical support Levophed for pressor support Continue nutritional support with TF's HD per Renal service NS bolus IV x 1 now Cardizem gtt 10mg/h, Digoxin IV Continue Cefepime AM lab: BMP, CBC, Mg++, PO3
[2020-02-10] MEDS ORDERED: Diltiazem HCl 125 MG, Admixture Fee 1 EACH in Sodium Chloride 0.9% 100 ML IVPB SCH (18:00)
[2020-02-10] MEDS ORDERED: Sodium Chloride 0.9% 800 ML IV SCH (19:15)
[2020-02-10] MEDS ORDERED: Amiodarone 150 MG, Admixture Fee 1 EACH in Dextrose 5% in Water 100 ML IVPB SCH (19:30)
[2020-02-10] MEDS: Amiodarone 450 MG, Admixture Fee 1 EACH in Dextrose 5% in Water 250 ML IVPB SCH (19:42)
[2020-02-10] MEDS: PHOS-NAK 1 PKT PACK PO SCH (20:48)
[2020-02-10] MEDS: Insulin Regular 300 UNITS/3 ML VIAL SC PRN (23:17)
[2020-02-11] MEDS: Sodium Chloride 0.9% 1,000 ML IV SCH ×2 (03:28→08:27)
[2020-02-11] MEDS: Amiodarone 450 MG, Admixture Fee 1 EACH in Dextrose 5% in Water 250 ML IVPB SCH (04:32)
[2020-02-11] MEDS: Propofol 1,000 MG/100 ML VIAL IV PRN ×2 (04:33→17:50)
[2020-02-11 05:13] LABS: Anion Gap 14 mmol/L (10-20); BUN (Urea Nitrogen) 25 mg/dL (8.4-25.7); Calc. Creatinine Clearance 32 mL/min (70-130); Calcium 7.3 mg/dL (7.8-10.44); Carbon Dioxide 23 mmol/L (23-31); Chloride 103 mmol/L (98-107); Estimated GFR-MDRD 34; Glucose 159 mg/dL (80-115); Magnesium 1.8 mg/dL (1.6-2.6); Potassium 3.1 mmol/L (3.5-5.1); Sodium 137 mmol/L (136-145)
[2020-02-11 05:21] LABS: Phosphorus 1.2 mg/dL (2.3-4.7)
[2020-02-11] MEDS: Insulin Regular 300 UNITS/3 ML VIAL SC PRN ×4 (05:27→23:27)
[2020-02-11 05:36] LABS: Band 17 % (5-11); Dohle Bodies SLIGHT; Eosinophils 1 % (0-10); Hemoglobin 9.3 g/dL (14.0-18.0); Lymphocytes 4 % (21-51); MDiff Complete? YES; Mean Corpuscular HGB CONC 32.6 g/dL (32.0-36.0); Mean Corpuscular Hemoglobin 30.6 pg (27.0-31.0); Mean Corpuscular Volume 93.7 fL (78.0-98.0); Mean Platelet Volume 9.2 fL (7.4-10.4); Monocytes 1 % (0-10); Neutrophil 77 % (42-75); Nucleated RBC 2 % (0); Platelet Count 70 thou/uL (130-400); Platelet Morphology Comment Appears Decreased; RBC Distribution Width 12.4 % (11.5-14.5); Red Blood Cell (RBC) Count 3.05 mill/uL (4.70-6.10); Toxic Granulation SLIGHT; Vacuoles SLIGHT; White Blood Cell (WBC) Count 14.9 thou/uL (4.8-10.8)
[2020-02-11] MEDS ORDERED: PHOS-NAK 1 PKT PACK PO SCH ×2 (05:45→09:00)
[2020-02-11 07:07] LABS: Actual Bicarbonate (HCO3a) 19.5 mEq/L (22-28); Base Excess (BEa) -2.8 mEq/L (-2.0 to +3.0); Calcium, Ionized 1.04 mmol/L (1.12-1.30); Carboxyhemoglobin (COHb) 0.7 gm% (0.0-3.0); Hemoglobin (Hb) 9.5 g/dL (14.0-18.0); Potassium - ABG Lab 3.35 mmol/L (3.70-5.30)
[2020-02-11 07:09] LABS: CO2 Tension 25.4 mmHg (35.0-45.0); O2 Tension (PaO2), arterial 55.9 mmHg (> 80.0); Puncture Site RBA
[2020-02-11] MEDS ORDERED: Acetaminophen 325 MG TAB PER TUBE PRN (08:02)
--- NOTE | 2020-02-11 08:10 | RAD ---
SINGLE VIEW OF THE CHEST: Comparison: 02-10-2020 History: Pneumonia FINDINGS: Single view of the chest shows a normal heart size and mediastinal silhouette. The lines and tubes ar e unchanged in position. There are diffuse scattered multifocal opacities in the lungs consistent wit h multifocal pneumonia. These are more prominently central rather than peripheral. There is a small l eft pleural effusion. IMPRESSION: Stable exam. POS: EAA
[2020-02-11] MEDS: PHOS-NAK 1 PKT PACK PO SCH (08:13)
[2020-02-11] MEDS: Pantoprazole 40 MG VIAL IVP SCH (08:13)
[2020-02-11] MEDS ORDERED: Magnesium 2 GM/50 ML 2 GM in Premix Bag 1 BAG IVPB SCH (08:30)
--- NOTE | 2020-02-11 09:12 | PRG ---
DATE OF SERVICE: 02/11/2020 SUBJECTIVE: Mr. Fraser is a 64-year-old white male, who was admitted for acute respiratory failure/acute kidney injury and initially was found to be unresponsive. He is being treated for an empiric antibiotics. He also was initiated with dialysis due to his significant renal dysfunction as well as an initial hyperkalemia with a potassium 8.1. He is tolerating hemodialysis. During the dialysis, due to the low blood pressure, we will minimize any fluid removal. The possibility of an acute kidney injury from hemodynamically mediated dysfunction remains. Urine sediment did not suggest ATN; however, his course is more suggestive on acute tubular necrosis. I have checked him for GERMÁN and ANCA due to the proteinuria and hematuria. GERMÁN was said to be negative and ANCA is currently pending. The patient continues to remain unresponsive. He has minimal urine output-he is currently on the anuric side. OBJECTIVE: VITAL SIGNS: Blood pressure is 115/72 with a heart rate of 83, temperature 99.5, O2 saturation 100%. GENERAL: Unresponsive, intubated on ventilator support. SKIN: Adequate turgor. HEENT: He has pinkish conjunctivae. Anicteric sclerae. NECK: No neck mass. No carotid bruits. No JVD. CHEST: No deformities. LUNGS: Decreased breath sounds. HEART: Normal sinus rhythm. No murmur. No gallops. No rubs. ABDOMEN: Globular, soft, nontender. No masses. EXTREMITIES: No edema. MEDICATIONS: Medications of February 11, 2020, were reviewed. LABORATORY DATA: Laboratories of February 11, 2020; sodium 137, potassium 3.1, chloride 103, carbon dioxide 23, BUN 25, creatinine 2.02, calcium 7.3. Magnesium is 1.8, phosphorus is 1.2. White count 14.9, hemoglobin 9.3. ASSESSMENT AND PLAN: 1. Acute kidney injury-consider the possibility of acute tubular necrosis, although hemodynamically mediated renal dysfunction still remains. Continue current dialysis regimen. We will do him 3 times a week dialysis. Fluid removal only as tolerated. 2. Pneumonia, on empiric IV antibiotics. 3. Hypokalemia/hypophosphatemia. Continue current phosphate and potassium replacement with this patient. We will initiate the electrolyte protocol for the ICU. 4. Overall prognosis remains guarded. Job ID: [id number]
[2020-02-11] MEDS ORDERED: Potassium Phosphate 12 MMOL in Sodium Chloride 0.9% 250 ML 250 ML IV PRN (09:27)
[2020-02-11] MEDS ORDERED: Magnesium 2 GM/50 ML 2 GM in Premix Bag 1 BAG IVPB PRN (09:27)
[2020-02-11] MEDS ORDERED: Magnesium Oxide 400 MG TAB PO PRN ×2 (09:27)
[2020-02-11] MEDS ORDERED: Potassium Phosphate 15 MMOL in Sodium Chloride 0.9% 250 ML 250 ML IV PRN (09:27)
[2020-02-11] MEDS ORDERED: Potassium Chloride 20 MEQ TAB PO PRN (09:27)
[2020-02-11] MEDS ORDERED: Potassium Chloride 40 MEQ in Premix Bag 1 BAG IVPB PRN (09:27)
[2020-02-11] MEDS ORDERED: PHOS-NAK 1 PKT PACK PO PRN (09:27)
[2020-02-11] MEDS ORDERED: CCU ELECTROLYTE REPLACEMENT PROTOCOL FS PRN (09:27)
[2020-02-11] MEDS ORDERED: Potassium Chloride 40 MEQ in Sodium Chloride 0.9% 250 ML 250 ML IVPB PRN (09:27)
[2020-02-11] MEDS ORDERED: Potassium Phosphate 9 MMOL in Sodium Chloride 0.9% 100 ML IVPB PRN (09:27)
--- NOTE | 2020-02-11 09:31 | PRG ---
DATE OF SERVICE: 02/11/2020 35 minutes of critical care time. SUBJECTIVE: The patient remains intubated on mechanical ventilation. I can get him to wake up and follow commands on his right side. OBJECTIVE: VITAL SIGNS: His temperature is 98.9, pulse 83, and blood pressure 115/72. 24-hour intake 4024 and output 350. HEENT: Pupils are reactive. Oropharynx, ET tube in place. NECK: No JVD. CARDIAC: S1 and S2 regular. Currently, on amiodarone drip. LUNGS: Clear. ABDOMEN: Soft and nontender. EXTREMITIES: No edema. LABORATORY DATA: White blood cell count 14.9, hematocrit 28.6, and platelet count 70. PH 7.50, pCO2 of 25, pO2 of 56 - suspected mixed gas, this is on SIMV rate 12, tidal volume 500, PEEP 5, pressure support 15, and FiO2 of 35%. Sodium 137, potassium 3.1, chloride 103, CO2 of 23, BUN 25, creatinine 2.0, and glucose 159. Chest x-ray shows bilateral pulmonary infiltrates. ASSESSMENT: 1. Acute respiratory failure requiring mechanical ventilation. 2. Severe hyperkalemia and acute renal failure at time of admission. 3. Pneumonia with septicemia. 4. Severe volume depletion at the time of admission. PLAN: 1. Dialysis is planned again for today. 2. He is continuing antibiotics. 3. We will go ahead and discontinue norepinephrine from the NOV since he is no longer requiring that. 4. Try spontaneous breathing. Job ID: [id number]
[2020-02-11] MEDS: Cefepime 1 GM in Sodium Chloride 0.9% 100 ML IVPB SCH (12:51)
--- NOTE | 2020-02-11 12:56 | EKG ---
Test Reason : TACHY Blood Pressure : / mmHG Vent. Rate : 152 BPM Atrial Rate : 153 BPM P-R Int : 000 ms QRS Dur : 080 ms QT Int : 330 ms P-R-T Axes : 000 054 268 degrees QTc Int : 524 ms Atrial fibrillation with rapid ventricular response with premature ventricular or aberrantly conducte d complexes Low voltage QRS Nonspecific ST and T wave abnormality Abnormal ECG When compared with ECG of 08-FEB-2020 12:53, (Unconfirmed) Atrial fibrillation has replaced Sinus rhythm Vent. rate has increased BY 59 BPM Questionable change in QRS duration Confirmed by KARI GALLOWAY, DR. Harrison ([id number]) on 02/11/2020 12:55:55 PM Referred By: HIRA Confirmed By:DR. Hunter PIERCE MD
--- NOTE | 2020-02-11 13:20 | PDOC.HOSPP ---
- Subjective Encounter Date: 02/11/20 Encounter Time: 13:15 Subjective: f/u for resp failure/PAULETTE/A-fib RVR now in SR. Remains mech ventilated on Amiodarone gtt. FIO2 35% with spont breathing trial. - Objective Vital Signs & Weight: Vital Signs (12 hours) Pulse Resp Pulse Ox 02/11/20 12:00 21 H 02/11/20 10:56 87 02/11/20 10:00 24 H 02/11/20 08:00 22 H 100 02/11/20 06:56 94 02/11/20 06:00 20 02/11/20 04:00 29 H 02/11/20 03:39 119 H 02/11/20 02:00 18 02/11/20 01:25 94 Weight Admit Weight 132 lb 15.02 oz Weight 132 lb 15.02 oz Most Recent Monitor Data Heart Rate from ECG 81 NIBP 134/81 NIBP BP-Mean 98 Respiration from ECG 6 SpO2 100 I&O: 02/10/20 02/11/20 02/12/20 06:59 06:59 06:59 Intake Total 3757 4024.0 50 Output Total 385 252 85 Balance 3372 3772.0 -35 Result Diagrams: 02/11/20 04:40 02/11/20 04:40 Additional Labs: Accuchecks 02/10/20 02/10/20 23:20 19:26 POC Glucose 171 H 108 Microbiology 02/08/20 13:08 Central Line - Right Subclavian Vein Blood Culture - Preliminary Specimen has been received and culture in progress. No Growth to date. 02/08/20 13:08 Central Line - Right Subclavian Vein Blood Culture - Preliminary NO GROWTH AT 48 HOURS 02/08/20 12:37 Port - Right Subclavian Vein Blood Culture - Preliminary Specimen has been received and culture in progress. No Growth to date. 02/08/20 12:37 Port - Right Subclavian Vein Blood Culture - Preliminary NO GROWTH AT 48 HOURS Laboratory Tests 02/08/20 02/08/20 02/08/20 12:37 12:37 12:42 WBC 13.9 H Hgb 11.9 L MCV 100.0 H Neutrophils % (Manual) 30 L Band Neuts % (Manual) 47 H Carbon Dioxide 8 L* BUN 135 H Creatinine 10.77 H Phosphorus GERMÁN Screen GERMÁN Scrn Qualitative GERMÁN Scrn Quantitative Anti-ds DNA IgG Ab COVID-19 PCR Not Detected Hep Bs Antigen 02/08/20 02/08/20 02/09/20 14:02 20:35 03:35 WBC 2.6 L Hgb 10.9 L MCV Neutrophils % (Manual) 16 L Band Neuts % (Manual) 55 H Carbon Dioxide 14 L BUN 48 H Creatinine 4.17 H Phosphorus GERMÁN Screen GERMÁN Scrn Qualitative GERMÁN Scrn Quantitative Anti-ds DNA IgG Ab COVID-19 PCR Hep Bs Antigen Non-Reactive 02/09/20 02/10/20 02/10/20 10:40 03:45 03:45 WBC Hgb MCV Neutrophils % (Manual) Band Neuts % (Manual) 57 H Carbon Dioxide BUN Creatinine Phosphorus 1.6 L GERMÁN Screen Negative GERMÁN Scrn Qualitative Negative GERMÁN Scrn Quantitative 0.2 Anti-ds DNA IgG Ab Less than 0.5 COVID-19 PCR Hep Bs Antigen Radiology Reviewed by me: Yes (PCXR - multifocal pneumonia, lines/tubes unchanged) EKG Reviewed by me: Yes (Tele - SR in 's) Hospitalist ROS - Medication Medications: Active Medications Generic Name Dose Route Start Last Admin Trade Name Freq PRN Reason Stop Dose Admin Cefepime HCl 1 gm/ Sodium 100 mls @ 200 mls/hr 02/09/20 13:00 02/11/20 12:51 Chloride IVPB 100 mls 1300 SAJAN Administration Thiamine HCl 100 mg/ Sodium 51 mls @ 100 mls/hr 02/08/20 16:00 02/11/20 03:28 Chloride IVPB 02/12/20 04:31 51 mls 0400,1600 SAJAN Administration Diltiazem HCl 125 mg/ 125 mls @ 0 mls/hr 02/10/20 18:00 02/10/20 18:10 Miscellaneous Medication 1 IVPB 125 mls each/ Sodium Chloride INF SAJAN Administration Protocol As Directed Amiodarone HCl 450 mg/ 259 mls @ 0 mls/hr 02/10/20 19:40 02/11/20 04:32 Miscellaneous Medication 1 IVPB 259 mls each/ Dextrose/Water INF SAJAN Administration Protocol As Directed Sodium Chloride 1,000 mls @ 60 mls/hr 02/11/20 08:02 02/11/20 08:27 Normal Saline 0.9% IV 1,000 mls .[id number] SAJAN Administration Insulin Human Regular 0 units 02/09/20 07:51 02/11/20 11:37 Humulin R SC 2 unit .MODERATE SLIDING SC PRN Administration Moderate Correctional Scale Lorazepam 2 mg 02/08/20 15:45 02/09/20 13:54 Ativan SLOW IVP 03/09/20 15:45 2 mg Q1H PRN Administration Breakthrough agitation Pantoprazole Sodium 40 mg 02/09/20 09:00 02/11/20 08:13 Protonix IVP 40 mg DAILY SAJAN Administration Propofol 1,000 mg 02/08/20 15:45 02/11/20 04:33 Diprivan IV 03/09/20 15:45 1,000 mg INF PRN Administration TO ACHIEVE GOAL RASS Protocol Sodium Chloride 10 ml 02/08/20 15:42 02/09/20 09:27 Normal Saline Pf FS 10 ml PRN PRN Administration RECONSTITUTION - Exam General - other findings: sedate on mech ventilation Eye: PERRL, anicteric sclera ENT: normocephalic atraumatic, no oropharyngeal lesions ENT - other findings: ETT in place Neck: supple, symmetric, no JVD, no thyromegaly Heart: RRR, no murmur, no gallops, no rubs, normal peripheral pulses Heart - other findings: S1, S2 Respiratory - other findings: diminished bilat, few scattered coarse sounds Gastrointestinal: soft, non-tender, non-distended, normal bowel sounds, no palpable masses Extremities: no cyanosis, no clubbing, no edema Skin: normal turgor Neurological - other findings: opens eyes briefly to name Psychiatric: somnolent, lethargic Hosp A/P (1) Atrial fibrillation with RVR Code(s): I48.91 - UNSPECIFIED ATRIAL FIBRILLATION Status: Acute Plan: Converted to SR, continue Amiodarone gtt, hold anticoagulation (2) Sepsis with acute renal failure and septic shock Code(s): A41.9 - SEPSIS, UNSPECIFIED ORGANISM; R65.21 - SEVERE SEPSIS WITH SEPTIC SHOCK; N17.9 - ACUTE KIDNEY FAILURE, UNSPECIFIED Status: Acute Qualifiers: Sepsis type: sepsis due to unspecified organism Acute renal failure type: with acute tubular necrosis Qualified Code(s): A41.9 - Sepsis, unspecified organism; R65.21 - Severe sepsis with septic shock; N17.0 - Acute kidney failure with tubular necrosis Plan: continue Cefepime (3) Acute respiratory failure with hypoxia Code(s): J96.01 - ACUTE RESPIRATORY FAILURE WITH HYPOXIA Status: Acute Plan: Spontaneous breathing trial, FIO2 35% (4) PAULETTE (acute kidney injury) Code(s): N17.9 - ACUTE KIDNEY FAILURE, UNSPECIFIED Status: Acute (5) Hyperkalemia Code(s): E87.5 - HYPERKALEMIA Status: Acute (6) Lactic acidosis Code(s): E87.2 - ACIDOSIS Status: Acute - Plan continue antibiotics, director of social media marketing, respiratory therapy, DVT proph w/SCDs Continue critical support Continue nutritional support with TF's HD per Renal service Continue Amiodarone gtt CM for dispo planning Continue Cefepime AM lab: BMP, CBC, Mg++, PO3
[2020-02-11] MEDS: PHOS-NAK 1 PKT PACK PO PRN (15:20)
--- NOTE | 2020-02-11 19:22 | CON ---
DATE OF CONSULTATION: 02/11/2020 INDICATION FOR CONSULTATION: A 64-year-old gentleman with new onset of atrial fibrillation. HISTORY OF PRESENT ILLNESS: This very unfortunate 64-year-old gentleman, who apparently had a CVA in October of 2019, was found apparently down by one of his neighbors at home, was flown in from the outlying facility via air ambulance. At that time, he was found to have acute renal failure. He was hypothermic, hypotensive, had a significant elevation of potassium and was hyperkalemic as well as acidotic. At that time, he had also underwent intubation. He has been placed in intensive care unit. He has been essentially unresponsive until today. He wiggles his toes, and is following some recent commands, was seemed to have some least responsive that he is aware of what is going on around him. At least he is able to follow some commands like wiggling his toes or squeezing his fingers or squeezing the hand. Otherwise, he had very little other response, but last night he developed atrial fibrillation with rapid ventricular response with a heart rate of 152 beats per minute. He was given I believe digoxin and placed on IV amiodarone. He has since converted back to a sinus rhythm and he remains on the ventilator at this time. 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 He has a history of hypertension, diabetes, hyperlipidemia. He has had some hand surgery in the past. Uncertain if he had any other medical problems. He has had no other surgery that we aware of. FAMILY HISTORY: Apparently is positive for leukemia as well as diabetes. SOCIAL HISTORY: He abuses alcohol as well as cigarettes. He smokes as much as two packs of cigarettes a day apparently. ALLERGIES: NONE. MEDICATIONS: Prior to admission include; 1. Metformin 800 mg b.i.d. 2. Amlodipine 5 mg a day. 3. Plavix 75 mg a day. 4. Lisinopril 10 mg a day. 5. Tramadol p.r.n. as needed 50 mg. 6. Atorvastatin 40 mg a day. 7. Metoprolol 50 mg b.i.d. 8. He is also taking Seroquel 25 mg q.p.m. 9. At this time, he is on the amiodarone IV for a loading medication. I would agree with that. He also is on cefepime. He is also on IV diltiazem. He remains on fentanyl for sedation and IV fluids and other p.r.n. medications. I believe he has already been seen by Pulmonology as well as Nephrology. PHYSICAL EXAMINATION: GENERAL: Reveals an ill, somewhat disheveled patient, who is in no acute distress, but is apparently sedated on the ventilator. VITAL SIGNS: He is afebrile. O2 saturation is 100%, heart rates in the 80s and shows a sinus rhythm. Blood pressure is 126/81. HEENT: Shows the head to be normocephalic and atraumatic. I did not hear any significant bruits. CHEST: He has decreased breath sounds throughout but it is clear. I do not hear rales, rhonchi, or wheezing. CARDIOVASCULAR: Regular rate and rhythm. Normal S1, S2. I cannot hear any significant S3 or S4. There were no significant murmurs, heaves, thrills, bruits or rubs. ABDOMEN: Soft and flat. Well-healed surgical incision is present. EXTREMITIES: Showed no clubbing or cyanosis. He does have some pedal edema, but appears that the wraps were somewhat tight. There is no edema in the remaining part of the legs. He has femoral pulses and popliteal pulses, it is very difficult to palpate pedal pulses. This may be due to the edema. He also has a catheter in the right femoral artery for his dialysis. NEUROLOGIC: The patient is still somewhat sedated appearing, but does seem to follow some commands at times. LABORATORY DATA: Today shows a WBC of 14.9, hemoglobin 9.3, hematocrit was 28.6 , and platelet count was 70,000, which was decreased from his arrival. Platelet count of 319,000. His sodium is 137, potassium 3.1, chloride was 103, bicarb was 23. His BUN was 25 with a creatinine of 2.02, which seems to be improving. Blood sugar was 159 and phosphorus was 1.2. Calcium was 7.3, which is also low. His urinalysis on the showed 2+ bacteria. He was checked also for COVID-19 and was found to be not detectable. His EKG repeated earlier at 1647 hours yesterday showed the atrial fibrillation with a rapid ventricular response. Even at that time, he did not have any acute ST-segment changes. He did have some minimal nonspecific ST-segment changes in the lateral leads, but did not appear to be significant. IMPRESSION: 1. A 64-year-old gentleman with a history of previous cerebrovascular accident in the past with watershed-type distribution, but certainly could have been due to atrial fibrillation in the past, who has now developed atrial fibrillation yesterday evening. We would agree with the amiodarone, once he is stable, further evaluation will need to be indicated. He most likely will need to be on chronic anticoagulation. 2. History of probable sepsis. He is still on IV antibiotics. 3. Possible anoxic brain injury. Hopefully, he will recover from this. He seems to be following some commands. 4. Acute renal insufficiency. When he was here previously in October of this year, the renal function appears to be normal, uncertain of the acute etiology of the acute renal failure. When he arrived, his creatinine was 10.7, is now down to 2.02 and is noted he has been seen by Dr. Cruz. He has been given dialysis and this continues, the kidneys may recover. He was seen and it was felt to be acute tubular necrosis. 5. Probable sepsis, most likely due to pneumonia. At this time, we will continue to follow the patient with you. I will repeat the echocardiogram to ensure there has been no evidence of vegetations that may have caused some sepsis or whether just pneumonia. Also evaluated the cardiac output due to the recent change in his status. The chest x-ray did show he had a normal heart size with significant scattered what appeared to be pneumonia. He also had a small left pleural effusion. His troponins have been negative for myocardial infarction. There is no indication that he has suffered an HI or has any underlying coronary artery disease. At this time, it is noted with the elevated heart rate with atrial fibrillation. He did not have any significant ST-segment changes that would indicate ischemia. We will be more than happy to continue to follow the patient with you. I would agree at this time with the IV amiodarone and also diltiazem if needed for rate control. The blood pressure is stable. The heart rate is stable at this time. Job ID: [id number] MTDD
[2020-02-12] MEDS: Sodium Chloride 0.9% 1,000 ML IV SCH (01:06)
[2020-02-12] MEDS: Propofol 1,000 MG/100 ML VIAL IV PRN (04:48)
[2020-02-12 05:46] LABS: Anion Gap 12 mmol/L (10-20); BUN (Urea Nitrogen) 38 mg/dL (8.4-25.7); Calc. Creatinine Clearance 25 mL/min (70-130); Calcium 7.5 mg/dL (7.8-10.44); Carbon Dioxide 23 mmol/L (23-31); Chloride 104 mmol/L (98-107); Estimated GFR-MDRD 26; Glucose 150 mg/dL (80-115); Phosphorus 1.7 mg/dL (2.3-4.7); Potassium 3.4 mmol/L (3.5-5.1); Sodium 136 mmol/L (136-145)
[2020-02-12 05:48] LABS: Hemoglobin 8.9 g/dL (14.0-18.0); Mean Corpuscular HGB CONC 33.2 g/dL (32.0-36.0); Mean Corpuscular Hemoglobin 31.2 pg (27.0-31.0); Mean Corpuscular Volume 94.2 fL (78.0-98.0); Mean Platelet Volume 9.1 fL (7.4-10.4); Platelet Count 93 thou/uL (130-400); RBC Distribution Width 12.4 % (11.5-14.5); Red Blood Cell (RBC) Count 2.85 mill/uL (4.70-6.10); White Blood Cell (WBC) Count 10.8 thou/uL (4.8-10.8)
[2020-02-12] MEDS: Insulin Regular 300 UNITS/3 ML VIAL SC PRN (05:56)
[2020-02-12] MEDS: PHOS-NAK 1 PKT PACK PO PRN (05:57)
[2020-02-12 07:10] LABS: Actual Bicarbonate (HCO3a) 21.4 mEq/L (22-28); Base Excess (BEa) -1.3 mEq/L (-2.0 to +3.0); Calcium, Ionized 1.06 mmol/L (1.12-1.30); Carboxyhemoglobin (COHb) 0.5 gm% (0.0-3.0); Hemoglobin (Hb) 10.2 g/dL (14.0-18.0); O2 Tension (PaO2), arterial 76.3 mmHg (> 80.0); Potassium - ABG Lab 4.27 mmol/L (3.70-5.30); pH, Arterial 7.49 (7.35-7.45)
[2020-02-12 07:16] LABS: Puncture Site LRA
--- NOTE | 2020-02-12 07:38 | RAD ---
Chest one view HISTORY: Pneumonia. Follow-up. COMPARISON: 02/11/2020. FINDINGS: Cardiac silhouette is magnified by projection. Pulmonary vasculature remains engorged. Dens e infiltrate throughout each lung, more pronounced centrally, has progressed over the last 2 days. Left hemidiaphragm now more obscured. Partial obscuration of the right hemidiaphragm. Mediastinum is midline with aortic calcification. Lines and tubes are unchanged in position. No evidence of pneumothorax. IMPRESSION : Gradual radiographic worsening of now dense bilateral parenchymal infiltrates.
--- NOTE | 2020-02-12 07:55 | PRG ---
DATE OF SERVICE: 02/12/2020 35 minutes of critical care time. SUBJECTIVE: This patient remains intubated, on mechanical ventilation. He will wake up and follow some commands with his right side. OBJECTIVE: VITAL SIGNS: His temperature is 98.1, pulse is 75, blood pressure is 132/76, currently on amiodarone drip. His total intake for 24 hours was 3362, output 548 by Cleaning. HEENT: Unremarkable. NECK: No JVD. LUNGS: Crackles anteriorly bilaterally. CARDIOVASCULAR: S1 and S2, now regular. ABDOMEN: Soft and nontender. EXTREMITIES: Trace edema. LABORATORY DATA: White blood cell count 10.8, hematocrit 26.9, and platelet count 93. PH of 7.49, pCO2 of 29, pO2 of 76. Sodium 136, potassium 3.4, chloride 104, CO2 of 23, BUN 38, creatinine 2.5, glucose 150. DIAGNOSTIC DATA: Chest x-ray shows more pulmonary edema compared to yesterday. ASSESSMENT: 1. Acute renal failure. 2. Acute respiratory failure, requiring mechanical ventilation. 3. Fluid overload. 4. Pneumonia with septicemia. 5. Severe volume depletion at the time of admission, which has now been corrected. PLAN: 1. Dialysis this morning. Probable extubation afterwards if he looks good after dialysis. 2. We will stop his maintenance IV fluids. 3. Further disposition to follow. Job ID: [id number]
[2020-02-12] MEDS: Pantoprazole 40 MG VIAL IVP SCH (09:07)
--- NOTE | 2020-02-12 09:22 | PRG ---
DATE OF SERVICE: 02/12/2020 Mr. Fraser is a 64-year-old white male, who was initially admitted for unresponsiveness. He was also noted to have pulmonary infiltrates suggesting of pneumonia. He was initially on dialysis due to his potassium of 8.1 and acute kidney injury. He is currently undergoing hemodialysis. He is still noted to be on the oliguric side. We have minimized fluid removal with dialysis in the past due to the low blood pressure. PHYSICAL EXAMINATION: VITAL SIGNS: Blood pressure is currently 147/83, heart rate 82. Respiratory rate is 12. GENERAL: The patient is minimally responsive, off sedation. He is still intubated. HEENT: He has slightly pale conjunctivae. Anicteric sclerae. No neck mass. No carotid bruits. No JVD. CHEST: No deformities. LUNGS: Decreased breath sounds. HEART: Normal sinus rhythm. No murmurs, gallops, or rubs. ABDOMEN: Globular, soft, nontender. No masses. EXTREMITIES: No edema. MEDICATIONS: February 12, 2020, was reviewed. LABORATORY DATA: February 12, 2020; white count 10.8, hemoglobin 8.9, sodium 136, potassium 3.4, chloride 104, carbon dioxide 23, BUN 38, creatinine 2.54, glucose 150, calcium 7.5, phosphorus 1.7, magnesium 2.7. Chest x-ray of February 12, 2020, there are dense bilateral parenchymal infiltrates. ASSESSMENT AND PLAN: 1. Acute kidney injury-most likely the patient may have an underlying acute tubular necrosis. He is noted to be still oliguric. His GERMÁN screen was noted to be negative. His ANCA is still pending. Continue dialysis support with this patient. We will attempt fluid removal only if tolerated by the patient. 2. Sepsis/pneumonia, on empiric antibiotics. 3. Anemia. P.r.n. blood transfusion. Overall, prognosis remains guarded. Job ID: [id number]
[2020-02-12 09:35] LABS: Band 8 % (5-11); Lymphocytes 13 % (21-51); MDiff Complete? YES; Monocytes 10 % (0-10); Neutrophil 69 % (42-75); Platelet Morphology Comment Appears Decreased; Polychromasia SLIGHT = 2-3 cells (100X) (0-2/hpf)
--- NOTE | 2020-02-12 11:22 | PDOC.CPN ---
- Subjective Date: 02/12/20 Time: 11:54 Interval history: The pt seen and examined. No overnight events. On Vent with Vent sedation - Objective Allergies/Adverse Reactions: Allergies Allergy/AdvReac Type Severity Reaction Status Date / Time No Known Allergies Allergy Unverified 10/24/19 16:53 Visit Medications: Current Medications Acetaminophen (Tylenol) 650 mg PER TUBE Q6H PRN PRN Reason: Fever > 101 Dextrose/Water (Dextrose 50%) 25 gm SLOW IVP PRN PRN PRN Reason: Hypoglycemia Glucagon (Glucagon) 1 mg IM PRN PRN PRN Reason: Hypoglycemia Cefepime HCl 1 gm/ Sodium (Chloride) 100 mls @ 200 mls/hr IVPB 1300 SAJAN Last Admin: 02/11/20 12:51 Dose: 100 mls Fentanyl Citrate 2,000 mcg/ (Sodium Chloride) 100 mls @ 0 mls/hr IV INF SAJAN; Protocol Stop: 03/09/20 15:45 Fentanyl Citrate (Fentanyl Bolus) 250 mls @ 0 mls/hr IVPB PRN PRN PRN Reason: Breakthrough pain/agitation Stop: 03/09/20 15:45 Dextrose/Water (D5w) 1,000 mls @ 0 mls/hr IV .Q0M PRN PRN Reason: Hypoglycemia Diltiazem HCl 125 mg/Miscellaneous Medication 1 each/ Sodium Chloride 125 mls @ 0 mls/hr IVPB INF SAJAN; Protocol Last Admin: 02/10/20 18:10 Dose: 125 mls Amiodarone HCl 450 mg/Miscellaneous Medication 1 each/ Dextrose/Water 259 mls @ 0 mls/hr IVPB INF SAJAN; Protocol Last Admin: 02/11/20 04:32 Dose: 259 mls Potassium Chloride 40 meq/ (Sodium Chloride) 270 mls @ 135 mls/hr IVPB ASDIR PRN PRN Reason: FOR SERUM K+ 2.5 - 3.5 Potassium Chloride 40 meq/ (Device) 100 mls @ 50 mls/hr IVPB ASDIR PRN PRN Reason: FOR SERUM K+ 2.5 - 3.5 Magnesium Sulfate 1 gm/ Sodium (Chloride) 102 mls @ 102 mls/hr IV PRN PRN PRN Reason: MAG LEVEL 1.4 - 2.0 Magnesium Sulfate 2 gm/ Device 50 mls @ 50 mls/hr IVPB ASDIR PRN PRN Reason: MAGNESIUM < 1.4 Potassium Phosphate 9 mmol/ (Sodium Chloride) 103 mls @ 25.75 mls/hr IVPB ASDIR PRN PRN Reason: Phosphate 1.0-1.8 Potassium Phosphate 12 mmol/ (Sodium Chloride) 254 mls @ 63.5 mls/hr IV ASDIR PRN PRN Reason: Serum phosphate 0.5-0.9 Potassium Phosphate 15 mmol/ (Sodium Chloride) 255 mls @ 63.75 mls/hr IV ASDIR PRN PRN Reason: Serum Phos < 0.5 Insulin Human Regular (Humulin R) 0 units SC .MODERATE SLIDING SC PRN PRN Reason: Moderate Correctional Scale Last Admin: 02/12/20 05:56 Dose: 2 unit Lorazepam (Ativan) 2 mg SLOW IVP Q1H PRN PRN Reason: Breakthrough agitation Stop: 03/09/20 15:45 Last Admin: 02/09/20 13:54 Dose: 2 mg Magnesium Oxide (Magnesium Oxide) 400 mg PO BIDPRN PRN PRN Reason: FOR SERUM MAG 1.4 - 2.0 Magnesium Oxide (Magnesium Oxide) 800 mg PO PRN PRN PRN Reason: FOR SERUM MAG < 1.4 Miscellaneous Medication (Phos-Nak) 1 pkt PO TIDPRN PRN PRN Reason: FOR PHOS LEVEL 1.0 - 1.8 Last Admin: 02/12/20 05:57 Dose: 1 pkt Miscellaneous Medication (Phos-Nak) 2 pkt PO TIDPRN PRN PRN Reason: FOR PHOS LEVEL 0.5 - 1.0 Morphine Sulfate (Morphine) 2 mg SLOW IVP Q1H PRN PRN Reason: BREAKTHROUGH PAIN/Agitation Stop: 03/09/20 15:45 Discontinue Previous Narcotic Pain Medications And Benzodiazepines 1 each FS .ONE SAJAN Stop: 03/09/20 15:45 Ccu Electrolyte (Replacement Protocol) 0 each FS PRN PRN PRN Reason: FOR ELECTROLYTE REPLACEMENT Pantoprazole Sodium (Protonix) 40 mg IVP DAILY [facility] Last Admin: 02/12/20 09:07 Dose: 40 mg Potassium Chloride (K-Dur) 40 meq PO ASDIR PRN PRN Reason: FOR SERUM K+ 2.5 - 3.5 Potassium Chloride (Klor-Con) 40 meq PER TUBE ASDIR PRN PRN Reason: FOR SERUM K+ 2.5-3.5 Last Admin: 02/12/20 05:57 Dose: 40 meq Propofol (Diprivan) 1,000 mg IV INF PRN; Protocol PRN Reason: TO ACHIEVE GOAL RASS Stop: 03/09/20 15:45 Last Admin: 02/12/20 04:48 Dose: 1,000 mg Propofol (Diprivan Bolus) 20 mg IV Q5MIN PRN PRN Reason: BREAKTHROUGH AGITATION Stop: 03/09/20 15:45 Sodium Chloride (Normal Saline Pf) 10 ml FS PRN PRN PRN Reason: RECONSTITUTION Last Admin: 02/09/20 09:27 Dose: 10 ml Vital Signs & Weight: Vital Signs Pulse Resp BP Pulse Ox 02/12/20 10:25 92 136/84 02/12/20 10:00 23 H 02/12/20 08:00 100 02/12/20 07:41 12 02/12/20 07:01 82 147/83 H 02/12/20 06:00 31 H 02/12/20 04:00 25 H 02/12/20 02:00 27 H 02/12/20 00:00 27 H Admit Weight 132 lb 15.02 oz Weight 132 lb 15.02 oz - Physical Exam General: other (On Vent with sedation) - Labs Result Diagrams: 02/12/20 05:10 02/12/20 05:10 Troponin/CKMB Troponin I 0.010 ng/mL (< 0.028) 02/08/20 18:26 - Telemetry Sinus rhythms and dysrhythmias: sinus rhythm - Assessment/Plan Assessment/Plan: 1. Afib with RVR - Remains in SR since AM on 02/11/2020; on amio drip; will start coreg 3.125mg BID from today; not on OAC for now due to Anemia; may start ASA 81mg? 2. PAULETTE - on HD, managed by materials assistant 3. Septic shock - on IV ABX 4. HTN - stable 5. DM type 2 - 6. 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 ETOH and Tobacco abuse - 8. anemia MAR reviewed * Echo on 02/11/2020 with EF 55-60% with trace MR and TR Pt. seen and eval. by me. I agree with the A/P by the [facility]. He has not had any further Afib. After extubation I spoke with him and he denies any prior cardiac history. When he is more stable then I would suggest a stress test prior to discharge. Exam: RRR, coarse upper airway noise. No edema. [id number]
[2020-02-12] MEDS ORDERED: Carvedilol 3.125 MG TAB PO SCH (11:30)
[2020-02-12] MEDS: Cefepime 1 GM in Sodium Chloride 0.9% 100 ML IVPB SCH (13:17)
[2020-02-12] MEDS: Carvedilol 3.125 MG TAB PO SCH (17:26)
[2020-02-12 22:43] LABS: Actual Bicarbonate (HCO3a) 24.5 mEq/L (22-28); Base Excess (BEa) 2.9 mEq/L (-2.0 to +3.0); CO2 Tension 27.7 mmHg (35.0-45.0); Calcium, Ionized 1.03 mmol/L (1.12-1.30); Carboxyhemoglobin (COHb) 0.3 gm% (0.0-3.0); Hemoglobin (Hb) 10.3 g/dL (14.0-18.0); O2 Tension (PaO2), arterial 67.2 mmHg (> 80.0); Potassium - ABG Lab 3.65 mmol/L (3.70-5.30)
[2020-02-12] MEDS: Morphine 2 MG/ML SYRINGE SLOW IVP PRN (23:23)
[2020-02-13 00:56] LABS: pH, Arterial 7.57 (7.35-7.45)
[2020-02-13 00:57] LABS: ALV-art Gradient 112.075 (0-20)
[2020-02-13 00:58] LABS: Puncture Site RRA
[2020-02-13] MEDS: Morphine 2 MG/ML SYRINGE SLOW IVP PRN ×5 (01:45→22:21)
[2020-02-13] MEDS: Amiodarone 450 MG, Admixture Fee 1 EACH in Dextrose 5% in Water 250 ML IVPB SCH ×2 (01:46→20:01)
[2020-02-13 04:21] LABS: Band 14 % (5-11); Hemoglobin 9.9 g/dL (14.0-18.0); Hypochromia SLIGHT = 6-15 cells (100X) (0-5/hpf); Lymphocytes 7 % (21-51); MDiff Complete? YES; Mean Corpuscular Hemoglobin 31.2 pg (27.0-31.0); Mean Corpuscular Volume 94.5 fL (78.0-98.0); Mean Platelet Volume 8.8 fL (7.4-10.4); Monocytes 8 % (0-10); Neutrophil 71 % (42-75); Nucleated RBC 1 % (0); Platelet Count 115 thou/uL (130-400); Platelet Morphology Comment Appears Decreased; RBC Distribution Width 12.6 % (11.5-14.5); Red Blood Cell (RBC) Count 3.17 mill/uL (4.70-6.10); White Blood Cell (WBC) Count 10.2 thou/uL (4.8-10.8)
[2020-02-13 04:23] LABS: Anion Gap 17 mmol/L (10-20); BUN (Urea Nitrogen) 23 mg/dL (8.4-25.7); Calc. Creatinine Clearance 31 mL/min (70-130); Calcium 7.8 mg/dL (7.8-10.44); Carbon Dioxide 22 mmol/L (23-31); Chloride 103 mmol/L (98-107); Estimated GFR-MDRD 32; Glucose 144 mg/dL (80-115); Phosphorus 2.1 mg/dL (2.3-4.7); Potassium 3.9 mmol/L (3.5-5.1); Sodium 138 mmol/L (136-145)
--- NOTE | 2020-02-13 07:01 | PRG ---
DATE OF SERVICE: 02/13/2020 SUBJECTIVE: I extubated Mr. Fraser yesterday. Initially, he had a lot of problems, at one point in the night, he had to go on high-flow oxygen. However, once we started giving him a little morphine for the back pain, he settled down. This morning, I found him conversant and relax. He is on 4 L nasal cannula. He is starting to put together what has happened. OBJECTIVE: VITAL SIGNS: Currently his heart rate is 102, blood pressure 126/94, O2 saturation 99% on 4 L, respiratory rates running in the high 20s to low 30s. HEENT: Unremarkable. NECK: No adenopathy or JVD. LUNGS: Coarse breath sounds. CARDIOVASCULAR: S1 and S2. Slightly tachycardic. ABDOMEN: Soft. EXTREMITIES: No edema. LABORATORY DATA: White blood cell count 10.2, hematocrit 29.9, and platelet count 115. Sodium 138, potassium 3.9, chloride 103, CO2 of 22, BUN 23, creatinine 2.1, and glucose 144. His x-ray continues to show bilateral infiltrates, not much changed there. ASSESSMENT: 1. Status post respiratory arrest, requiring mechanical ventilation. 2. Acute renal failure at the time of admission, probably secondary to severe volume depletion. 3. Previous stroke. 4. Pneumonia with septicemia. 5. Mild fluid overload yesterday. PLAN: 1. We will get him up in a chair today. 2. We will get Speech Therapy to see if they can clear his swallowing. 3. Add EzPAP to nebs to see if we can facilitate some pulmonary toilet measures. 4. We will keep him in the ICU at least one more day before moving him to the intermediate care unit. 5. Continue dialysis as needed per Nephrology team. Job ID: [id number]
[2020-02-13] MEDS: Pantoprazole 40 MG VIAL IVP SCH (07:36)
--- NOTE | 2020-02-13 08:17 | RAD ---
CHEST 1 VIEW: HISTORY: Pneumonia. COMPARISON: Radiograph of prior day. FINDINGS: Subclavian central venous catheter tip projects over the azygous vein. Heart size is normal. There are moderate effusions. Slight improved lung aeration on the left and right. No pneumothorax. IMPRESSION: Slight interval improvement of the lung aeration. POS: HOME
--- NOTE | 2020-02-13 09:32 | PRG ---
DATE OF SERVICE: 02/13/2020 SUBJECTIVE: Mr. Fraser is a 64-year-old white male, who was initially admitted for an acute respiratory failure, acute kidney injury, as well as hyperkalemia. He underwent an emergent hemodialysis. Yesterday, we were able to remove some fluid with him. He is currently extubated. This morning, he is feeling better. He denies any worsening shortness of breath. OBJECTIVE: VITAL SIGNS: Blood pressure is 110/79, heart rate 106, respiratory rate 28, and pulse oximetry 100%. GENERAL: The patient is awake, sitting comfortable, not in distress. SKIN: Adequate turgor. HEENT: He has a pinkish conjunctivae. Anicteric sclerae. NECK: No neck mass. No carotid bruits. No JVD. CHEST: No deformities. LUNGS: Decreased breath sounds. HEART: Normal sinus rhythm. No murmur. No gallops. No rubs. ABDOMEN: Globular, soft, and nontender. No masses. EXTREMITIES: No edema. No deformities. MEDICATIONS: Medications of February 13, 2020, were reviewed. LABORATORY DATA: Laboratories of February 13, 2020; white count 10.2 and hemoglobin 9.9. Sodium 138, potassium 3.9, chloride 103, carbon dioxide 22, BUN 23, creatinine 2.09, glucose 144, phosphorus is 2.1, calcium is 7.8, and magnesium is 2.0. IMAGING STUDIES: Chest x-ray improving infiltrates. His I and O were reviewed and he made about 1 L of urine output in the last 24 hours. ASSESSMENT AND PLAN: 1. Acute kidney injury - consider superimposed acute tubular necrosis. Currently, on maintenance hemodialysis. No indication for any dialysis. Please note that the urine output is improving and it is possible that the patient may have some degree of renal recovery. We will time the discontinuation of his dialysis depending on his chemistries as well as urine output. 2. Acute respiratory failure-presumptive pneumonia, currently on IV antibiotics. Overall, agree with current management. Job ID: [id number]
--- NOTE | 2020-02-13 12:49 | PDOC.CPN ---
- Subjective Date: 02/13/20 Time: 08:30 Interval history: The pt seen and examined. No overnight events. No cardiac complaints. - Objective Allergies/Adverse Reactions: Allergies Allergy/AdvReac Type Severity Reaction Status Date / Time No Known Allergies Allergy Unverified 10/24/19 16:53 Visit Medications: Current Medications Acetaminophen (Tylenol) 650 mg PER TUBE Q6H PRN PRN Reason: Fever > 101 Albuterol/Ipratropium (Duoneb) 3 ml EZPAP [id number] SCH Last Admin: 02/13/20 10:31 Dose: 3 ml Carvedilol (Coreg) 3.125 mg PO BID-[facility] Last Admin: 02/12/20 17:26 Dose: Not Given Dextrose/Water (Dextrose 50%) 25 gm SLOW IVP PRN PRN PRN Reason: Hypoglycemia Glucagon (Glucagon) 1 mg IM PRN PRN PRN Reason: Hypoglycemia Cefepime HCl 1 gm/ Sodium (Chloride) 100 mls @ 200 mls/hr IVPB 1300 SAJAN Last Admin: 02/12/20 13:17 Dose: 100 mls Dextrose/Water (D5w) 1,000 mls @ 0 mls/hr IV .Q0M PRN PRN Reason: Hypoglycemia Diltiazem HCl 125 mg/Miscellaneous Medication 1 each/ Sodium Chloride 125 mls @ 0 mls/hr IVPB INF SAJAN; Protocol Last Admin: 02/10/20 18:10 Dose: 125 mls Amiodarone HCl 450 mg/Miscellaneous Medication 1 each/ Dextrose/Water 259 mls @ 0 mls/hr IVPB INF SAJAN; Protocol Last Admin: 02/13/20 01:46 Dose: 259 mls Potassium Chloride 40 meq/ (Sodium Chloride) 270 mls @ 135 mls/hr IVPB ASDIR PRN PRN Reason: FOR SERUM K+ 2.5 - 3.5 Potassium Chloride 40 meq/ (Device) 100 mls @ 50 mls/hr IVPB ASDIR PRN PRN Reason: FOR SERUM K+ 2.5 - 3.5 Magnesium Sulfate 1 gm/ Sodium (Chloride) 102 mls @ 102 mls/hr IV PRN PRN PRN Reason: MAG LEVEL 1.4 - 2.0 Magnesium Sulfate 2 gm/ Device 50 mls @ 50 mls/hr IVPB ASDIR PRN PRN Reason: MAGNESIUM < 1.4 Potassium Phosphate 9 mmol/ (Sodium Chloride) 103 mls @ 25.75 mls/hr IVPB ASDIR PRN PRN Reason: Phosphate 1.0-1.8 Last Admin: 02/12/20 17:52 Dose: 103 mls Potassium Phosphate 12 mmol/ (Sodium Chloride) 254 mls @ 63.5 mls/hr IV ASDIR PRN PRN Reason: Serum phosphate 0.5-0.9 Potassium Phosphate 15 mmol/ (Sodium Chloride) 255 mls @ 63.75 mls/hr IV ASDIR PRN PRN Reason: Serum Phos < 0.5 Insulin Human Regular (Humulin R) 0 units SC .MODERATE SLIDING SC PRN PRN Reason: Moderate Correctional Scale Last Admin: 02/12/20 05:56 Dose: 2 unit Magnesium Oxide (Magnesium Oxide) 400 mg PO BIDPRN PRN PRN Reason: FOR SERUM MAG 1.4 - 2.0 Magnesium Oxide (Magnesium Oxide) 800 mg PO PRN PRN PRN Reason: FOR SERUM MAG < 1.4 Miscellaneous Medication (Phos-Nak) 1 pkt PO TIDPRN PRN PRN Reason: FOR PHOS LEVEL 1.0 - 1.8 Last Admin: 02/12/20 05:57 Dose: 1 pkt Miscellaneous Medication (Phos-Nak) 2 pkt PO TIDPRN PRN PRN Reason: FOR PHOS LEVEL 0.5 - 1.0 Morphine Sulfate (Morphine) 2 mg SLOW IVP Q1H PRN PRN Reason: Pain Last Admin: 02/13/20 08:11 Dose: 2 mg Discontinue Previous Narcotic Pain Medications And Benzodiazepines 1 each FS .ONE COUNT INCLUDES THE [facility] Stop: 03/09/20 15:45 Ccu Electrolyte (Replacement Protocol) 0 each FS PRN PRN PRN Reason: FOR ELECTROLYTE REPLACEMENT Pantoprazole Sodium (Protonix) 40 mg IVP DAILY SAJAN Last Admin: 02/13/20 07:36 Dose: 40 mg Potassium Chloride (K-Dur) 40 meq PO ASDIR PRN PRN Reason: FOR SERUM K+ 2.5 - 3.5 Potassium Chloride (Klor-Con) 40 meq PER TUBE ASDIR PRN PRN Reason: FOR SERUM K+ 2.5-3.5 Last Admin: 02/12/20 05:57 Dose: 40 meq Sodium Chloride (Normal Saline Pf) 10 ml FS PRN PRN PRN Reason: RECONSTITUTION Last Admin: 02/09/20 09:27 Dose: 10 ml Vital Signs & Weight: Vital Signs Temp Pulse Resp Pulse Ox 02/13/20 11:00 97.6 F 02/13/20 10:31 104 H 26 H 100 02/13/20 07:00 98.1 F 02/13/20 06:47 104 H 30 H 100 02/13/20 04:00 98.8 F 02/13/20 02:38 100 Admit Weight 132 lb 15.02 oz Weight 156 lb 11.979 oz - Physical Exam General: alert & oriented x3 HEENT: mucus membranes moist Neck: supple neck Cardiac: regular rate and rhythm, S1/S2 Lungs: decreased breath sounds - Labs Result Diagrams: 02/13/20 03:50 02/13/20 03:50 Troponin/CKMB Troponin I 0.010 ng/mL (< 0.028) 02/08/20 18:26 - Telemetry Sinus rhythms and dysrhythmias: sinus tachycardia - Assessment/Plan Assessment/Plan: 1. Afib with RVR - Remains in SR since AM on 02/11/2020; on amio drip; will start coreg 3.125mg BID from yesterday; however, he has not had any PO med due to difficult swallowing; not on OAC for now due to Anemia; may start ASA 81mg? suggest a stress test prior to discharge 2. PAULETTE - on HD, managed by timber cruiser 3. Septic shock - on IV ABX 4. HTN - stable 5. DM type 2 - 6. 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 ETOH and Tobacco abuse - smoking and ETOH cessation education given to the pt 8. anemia MAR reviewed * Echo on 02/11/2020 with EF 55-60% with trace MR and TR Pt. seen and eval. by me. I agrree with the A/P by the CAMPER ASSEMBLER. It is possible that his prior CVA was due to an episode of undiagnosed atrial fibrillation that resolved prior to the pt. being admitted at the time of the CVA. Suggest moth exterminator OAC. When he is more stable I would also recommend astres test or cardiac cath to rule out CAD. continue IV meds until the pt. can take po. meds. Chest : few scattered rhonchi, RRR, mild edema. gjm
[2020-02-13] MEDS: Carvedilol 3.125 MG TAB PO SCH ×2 (13:35→16:47)
[2020-02-13] MEDS: Cefepime 1 GM in Sodium Chloride 0.9% 100 ML IVPB SCH (13:44)
[2020-02-13] MEDS: Insulin Regular 300 UNITS/3 ML VIAL SC PRN ×2 (16:40→23:47)
--- NOTE | 2020-02-13 18:00 | PDOC.HOSPP ---
- Subjective Encounter Date: 02/13/20 Encounter Time: 17:45 Subjective: f/u for resp failure s/p mech ventilation extubated 02/12/20. Remains lethargic but attempts to answer some questions. Placed on [place] H2O protocol. - Objective Vital Signs & Weight: Vital Signs (12 hours) Temp Pulse Resp Pulse Ox 02/13/20 16:00 97.4 F L 02/13/20 14:33 106 H 23 H 92 L 02/13/20 11:00 97.6 F 02/13/20 10:31 104 H 26 H 100 02/13/20 07:00 98.1 F 02/13/20 06:47 104 H 30 H 100 Weight Admit Weight 132 lb 15.02 oz Weight 156 lb 11.979 oz Most Recent Monitor Data Heart Rate from ECG 98 NIBP 122/84 NIBP BP-Mean 96 Respiration from ECG 23 SpO2 98 I&O: 02/12/20 02/13/20 02/14/20 06:59 06:59 06:59 Intake Total 3362.7 1139 394 Output Total 548 1013 175 Balance 2814.7 126 219 Result Diagrams: 02/13/20 03:50 02/13/20 03:50 Additional Labs: Accuchecks 02/13/20 00:12 POC Glucose 133 H Microbiology 02/08/20 13:08 Central Line - Right Subclavian Vein Blood Culture - Preliminary Specimen has been received and culture in progress. No Growth to date. 02/08/20 13:08 Central Line - Right Subclavian Vein Blood Culture - Preliminary NO GROWTH AT 48 HOURS 02/08/20 12:37 Port - Right Subclavian Vein Blood Culture - Preliminary Specimen has been received and culture in progress. No Growth to date. 02/08/20 12:37 Port - Right Subclavian Vein Blood Culture - Preliminary NO GROWTH AT 48 HOURS Laboratory Tests 02/08/20 02/08/20 02/08/20 12:37 12:37 12:42 WBC 13.9 H Hgb 11.9 L MCV 100.0 H Neutrophils % (Manual) 30 L Band Neuts % (Manual) 47 H Carbon Dioxide 8 L* BUN 135 H Creatinine 10.77 H Phosphorus GERMÁN Screen GERMÁN Scrn Qualitative GERMÁN Scrn Quantitative Anti-ds DNA IgG Ab COVID-19 PCR Not Detected Hep Bs Antigen 02/08/20 02/08/20 02/09/20 14:02 20:35 03:35 WBC 2.6 L Hgb 10.9 L MCV Neutrophils % (Manual) 16 L Band Neuts % (Manual) 55 H Carbon Dioxide 14 L BUN 48 H Creatinine 4.17 H Phosphorus GERMÁN Screen GERMÁN Scrn Qualitative GERMÁN Scrn Quantitative Anti-ds DNA IgG Ab COVID-19 PCR Hep Bs Antigen Non-Reactive 02/09/20 02/10/20 02/10/20 10:40 03:45 03:45 WBC Hgb MCV Neutrophils % (Manual) Band Neuts % (Manual) 57 H Carbon Dioxide BUN Creatinine Phosphorus 1.6 L GERMÁN Screen Negative GERMÁN Scrn Qualitative Negative GERMÁN Scrn Quantitative 0.2 Anti-ds DNA IgG Ab Less than 0.5 COVID-19 PCR Hep Bs Antigen Radiology Reviewed by me: Yes (PCXR - minimal improvement in aeration) EKG Reviewed by me: Yes (Tele - sinus tachycardia) Hospitalist ROS - Medication Medications: Active Medications Generic Name Dose Route Start Last Admin Trade Name Freq PRN Reason Stop Dose Admin Albuterol/Ipratropium 3 ml 02/13/20 07:00 02/13/20 14:33 Duoneb EZPAP 3 ml [id number] SAJAN Administration Carvedilol 3.125 mg 02/12/20 17:00 02/13/20 16:47 Coreg PO Not Given BID-WM SAJAN Cefepime HCl 1 gm/ Sodium 100 mls @ 200 mls/hr 02/09/20 13:00 02/13/20 13:44 Chloride IVPB 100 mls 1300 SAJAN Administration Diltiazem HCl 125 mg/ 125 mls @ 0 mls/hr 02/10/20 18:00 02/10/20 18:10 Miscellaneous Medication 1 IVPB 125 mls each/ Sodium Chloride INF SAJAN Administration Protocol As Directed Amiodarone HCl 450 mg/ 259 mls @ 0 mls/hr 02/10/20 19:40 02/13/20 01:46 Miscellaneous Medication 1 IVPB 259 mls each/ Dextrose/Water INF SAJAN Administration Protocol As Directed Potassium Phosphate 9 mmol/ 103 mls @ 25.75 mls/hr 02/11/20 09:27 02/12/20 17 :52 Sodium Chloride IVPB 103 mls ASDIR PRN Administration Phosphate 1.0-1.8 Insulin Human Regular 0 units 02/09/20 07:51 02/13/20 16:40 Humulin R SC 2 unit .MODERATE SLIDING SC PRN Administration Moderate Correctional Scale Miscellaneous Medication 1 pkt 02/11/20 09:27 02/12/20 05:57 Phos-Nak PO 1 pkt TIDPRN PRN Administration FOR PHOS LEVEL 1.0 - 1.8 Morphine Sulfate 2 mg 02/12/20 23:20 02/13/20 15:13 Morphine SLOW IVP 2 mg Q1H PRN Administration Pain Pantoprazole Sodium 40 mg 02/09/20 09:00 02/13/20 07:36 Protonix IVP 40 mg DAILY SAJAN Administration Potassium Chloride 40 meq 02/11/20 09:27 02/12/20 05:57 Klor-Con PER TUBE 40 meq ASDIR PRN Administration FOR SERUM K+ 2.5-3.5 Sodium Chloride 10 ml 02/08/20 15:42 02/09/20 09:27 Normal Saline Pf FS 10 ml PRN PRN Administration RECONSTITUTION - Exam General Appearance: awake alert General - other findings: mumbles words, tracks with eyes briefly Eye: PERRL, anicteric sclera ENT: normocephalic atraumatic, no oropharyngeal lesions Neck: supple, symmetric, no JVD, no thyromegaly Heart: no gallops, no rubs, normal peripheral pulses Heart - other findings: S1, S2 tachycardic Respiratory - other findings: coarse sounds bilat, diminished in bases Gastrointestinal: soft, non-tender, non-distended, normal bowel sounds, no palpable masses Extremities: no cyanosis, no clubbing Extremities - other findings: minimal ankle edema Skin: normal turgor Neurological - other findings: dysarthria Musculoskeletal: generalized weakness Psychiatric: oriented to person, somnolent, lethargic Hosp A/P (1) Atrial fibrillation with RVR Code(s): I48.91 - UNSPECIFIED ATRIAL FIBRILLATION Status: Acute Plan: Current sinus tachycardia, continue Coreg, Amiodarone, no anticoagulation due to anemia/falls (2) Sepsis with acute renal failure and septic shock Code(s): A41.9 - SEPSIS, UNSPECIFIED ORGANISM; R65.21 - SEVERE SEPSIS WITH SEPTIC SHOCK; N17.9 - ACUTE KIDNEY FAILURE, UNSPECIFIED Status: Acute Qualifiers: Sepsis type: sepsis due to unspecified organism Acute renal failure type: with acute tubular necrosis Qualified Code(s): A41.9 - Sepsis, unspecified organism; R65.21 - Severe sepsis with septic shock; N17.0 - Acute kidney failure with tubular necrosis Plan: Continue Cefepime (3) Acute respiratory failure with hypoxia Code(s): J96.01 - ACUTE RESPIRATORY FAILURE WITH HYPOXIA Status: Acute Plan: Extubation 02/12/20 (4) PAULETTE (acute kidney injury) Code(s): N17.9 - ACUTE KIDNEY FAILURE, UNSPECIFIED Status: Acute Plan: HD per Renal service, ? need for [facility] HD (5) Hyperkalemia Code(s): E87.5 - HYPERKALEMIA Status: Acute (6) Lactic acidosis Code(s): E87.2 - ACIDOSIS Status: Acute - Plan continue antibiotics, PT/OT, social psychologist, speech therapy, respiratory therapy, DVT proph w/SCDs Continue critical support Continue nutritional support with TF's HD per Renal service Continue Amiodarone gtt CM for dispo planning Continue Cefepime AM lab: BMP, CBC, Mg++, PO3
[2020-02-14] MEDS: Morphine 2 MG/ML SYRINGE SLOW IVP PRN ×8 (00:29→21:25)
[2020-02-14 04:23] VITALS: BMI 25.4
[2020-02-14 04:39] LABS: Band 18 % (5-11); Hemoglobin 9.9 g/dL (14.0-18.0); Lymphocytes 11 % (21-51); MDiff Complete? YES; Mean Corpuscular Hemoglobin 30.5 pg (27.0-31.0); Mean Corpuscular Volume 95.4 fL (78.0-98.0); Mean Platelet Volume 9.4 fL (7.4-10.4); Monocytes 7 % (0-10); Neutrophil 64 % (42-75); Platelet Count 177 thou/uL (130-400); Platelet Morphology Comment Appears Adequate; RBC Distribution Width 12.8 % (11.5-14.5); Red Blood Cell (RBC) Count 3.25 mill/uL (4.70-6.10); White Blood Cell (WBC) Count 17.1 thou/uL (4.8-10.8)
[2020-02-14 04:44] LABS: Actual Bicarbonate (HCO3a) 18.7 mEq/L (22-28); Base Excess (BEa) -4.4 mEq/L (-2.0 to +3.0); CO2 Tension 28.2 mmHg (35.0-45.0); Calcium, Ionized 1.08 mmol/L (1.12-1.30); Carboxyhemoglobin (COHb) 0.5 gm% (0.0-3.0); Hemoglobin (Hb) 10.9 g/dL (14.0-18.0); Potassium - ABG Lab 4.07 mmol/L (3.70-5.30); pH, Arterial 7.44 (7.35-7.45)
[2020-02-14 04:46] LABS: Anion Gap 17 mmol/L (10-20); BUN (Urea Nitrogen) 33 mg/dL (8.4-25.7); Calc. Creatinine Clearance 29 mL/min (70-130); Calcium 8.1 mg/dL (7.8-10.44); Carbon Dioxide 22 mmol/L (23-31); Chloride 103 mmol/L (98-107); Estimated GFR-MDRD 23; Glucose 158 mg/dL (80-115); Phosphorus 2.6 mg/dL (2.3-4.7); Sodium 138 mmol/L (136-145)
[2020-02-14 05:00] LABS: O2 Tension (PaO2), arterial 43.8 mmHg (> 80.0)
[2020-02-14 05:01] LABS: Puncture Site LRA
[2020-02-14] MEDS ORDERED: Acetylcysteine 20% 200 MG/ML 30 ML VIAL INH SCH (05:15)
[2020-02-14] MEDS ORDERED: Albuterol Sulfate 2.5 mg/3 ml Neb NEB SCH (05:15)
[2020-02-14] MEDS: Insulin Regular 300 UNITS/3 ML VIAL SC PRN (06:13)
--- NOTE | 2020-02-14 07:57 | ULT ---
EXAM: [facility]ICAL HISTORY: Left upper extremity edema COMPARISON: None FINDINGS: Grayscale, color-flow, Doppler evaluation, spectral analysis of the left upper extremity venous struc tures is performed with 2-D imaging. Flow is demonstrated in the left internal jugular and subclavian veins. Normal luminal compressibilit y and flow is seen within the left axillary and brachial veins. The right ulnar and radial veins were not imaged. Normal luminal compressibility and flow is seen in the left upper extremity basilic vein. However, a portion of the left upper extremity basilic vein in the proximal forearm is not seen. There is decreased lumen compressibility and echogenic material seen within the left cephalic vein in the left forearm. Left upper extremity cephalic vein in the arm is not well seen. IMPRESSION: 1. No evidence of a DVT involving the visualized deep venous structures in the left upper extremity. Left ulnar and radial veins were not imaged. 2. Thrombus in the left upper extremity cephalic vein. This is a superficial vein. 3. The left upper extremity basilic vein in the forearm proximally is not seen. Left upper extremity basilic vein otherwise demonstrates normal luminal compressibility and flow.
--- NOTE | 2020-02-14 08:08 | RAD ---
EXAM: CHEST ONE VIEW HISTORY: Pneumonia. Follow-up evaluation. COMPARISON: 02/13/2020 FINDINGS: Right subclavian central venous catheter remains in place and unchanged in position. Cardiac silhouet te is magnified by projection and patient rotation.. There are interstitial and alveolar opacities seen within the lungs bilaterally greater on the right. There is greater increased density seen at th e left lung base and left retrocardiac region. This may represent a left pleural effusion and volume loss. However, superimposed infiltrate left lung base is a possibility. No other interval dickens ge. IMPRESSION: Bilateral interstitial and alveolar opacities which appear mildly increased on the left. Findings are worrisome for multifocal pneumonia. Atypical pneumonia is a possibility. Viral pneumonitis in the correct clinical scenario is a possibility.
[2020-02-14 08:33] LABS: INR-International Normal Ratio 1.1; PTT 29.2 SEC (22.9-36.1); Prothrombin Time 14.5 sec (12.0-14.7)
[2020-02-14] MEDS: Pantoprazole 40 MG VIAL IVP SCH (08:41)
[2020-02-14] MEDS: Carvedilol 3.125 MG TAB PO SCH ×2 (08:42→16:55)
--- NOTE | 2020-02-14 09:13 | ULT ---
Ultrasound Doppler duplex arterial left upper extremity: 02/14/2020 HISTORY: 64-year-old male with left upper extremity edema. Rule out arterial occlusion. TECHNIQUE: Grayscale, color-flow, and spectral analysis, of major arteries of left upper extremity. FINDINGS: Peak systolic velocities in centimeters per second, followed by pulse Doppler waveforms: Subclavian, proximal: 255, monophasic with waterhammer waveform. Subclavian, mid: 65, triphasic Subclavian, distal: 30, triphasic Axillary: 35, triphasic Brachial: 35, triphasic Radial: 30, triphasic Ulnar: 15, monophasic IMPRESSION: 1. High velocity and abnormal waveform in proximal left subclavian artery, raising the possibility of high-grade stenosis in the left subclavian artery. 2. Low velocity and abnormal waveform in the left ulnar artery, questionable for upstream stenosis. A lternatively, this could be technical. 3. Consider catheter angiogram.
--- NOTE | 2020-02-14 10:29 | PRG ---
DATE OF SERVICE: 02/14/2020 SERVICE: Renal Medicine. SUBJECTIVE: Mr. Fraser is a 64-year-old white male who was seen by the Renal Service for his acute kidney injury/hyperkalemia. He underwent emergent hemodialysis at that time and currently on maintenance hemodialysis. He is tolerating the said dialysis. He also was found to have multifocal pneumonia/CHF. His urine output somewhat slow down in the last 24 hours. I have scheduled him for another dialysis treatment today. The patient has been extubated. His mentation has slightly improved, but still confused. OBJECTIVE: VITAL SIGNS: Blood pressure 119/83, heart rate 100, respiratory rate 22, and O2 saturation 96%. GENERAL: Noted to be awake. Can follow simple commands, but occasionally confused. SKIN: Adequate turgor. HEENT: He has pinkish conjunctivae. Anicteric sclerae. NECK: No neck mass. No carotid bruits. No JVD. CHEST: No deformities. LUNGS: Harsh breath sounds. HEART: Normal sinus rhythm. No murmurs, no gallops, or no rubs. ABDOMEN: Globular, soft, nontender. No masses. EXTREMITIES: No edema. No deformities. MEDICATIONS: Medications of February 14, 2020, were reviewed. LABORATORY DATA: Laboratories of February 14, 2020; white count 17.1 and hemoglobin 9.9. Sodium 138, potassium 4, chloride 103, carbon dioxide 22, BUN 33, creatinine 2.76, glucose 158, calcium 8.1, phosphorus is 2.6, and magnesium 1.9. ASSESSMENT AND PLAN: 1. Acute kidney injury - consider the possibility of a superimposed acute tubular necrosis. Continue 3 times a week hemodialysis with fluid removal only as tolerated. 2. Hypophosphatemia/hypomagnesemia, on p.r.n. phosphorus and magnesium replacement. 3. Sepsis/pneumonia, on IV antibiotics. Continue supportive care. Job ID: [id number]
[2020-02-14] MEDS: Amiodarone 450 MG, Admixture Fee 1 EACH in Dextrose 5% in Water 250 ML IVPB SCH (11:56)
--- NOTE | 2020-02-14 12:54 | PRG ---
DATE OF SERVICE: 02/14/2020 SUBJECTIVE: Mr. Fraser is an unfortunate 64-year-old gentleman with a long- standing tobacco history of as much as 2 packs per day. According to his , he still "smokes a few." He is not on home oxygen and uses inhalers infrequently. He had a large stroke in August 2019 with resultant left hemiparesis. He has had some minimal recovery of the left leg and can ambulate in very limited fashion, but has not recovered the use of his left arm. He lives at home in a hospital bed in the living room. In the days preceding admission, he developed increasing shortness of breath as well as some nausea and vomiting and may well as had possible aspiration of that. He is subsequently brought to the hospital. He has been seen by the armhole baster jumpbasting, who is controlling his atrial fib and rapid ventricular response with rate controlling agents. He may well need further cardiac intervention at a later date. He has developed a superficial vein thrombosis of the left forearm. His echocardiogram demonstrates preserved LV systolic function without evidence of right ventricular dysfunction. From a pulmonary perspective, he has required supplemental oxygen at high flow rates. He had acute renal failure on admission, necessitating initiation of hemodialysis. During the night, the patient had worsening obtundation and a blood gas has shown worsening hypoxia. He has been placed on BiPAP, but even now has had a difficult time in controlling saturation at 80%. I have had a long talk with the patient's about his preadmission condition and the factors associated since that time. We have talked about resuscitative care. The patient has told her that he does not wish aggressive care and is difficult as the decision is to she and her family, they are trying to honor his request. OBJECTIVE: VITAL SIGNS: Blood pressure 119/83, respiratory rate in the mid 20s , saturation 92% on BiPAP, heart rate is 98. He is on BiPAP with pressures 14/8. GENERAL: He is a 64-year-old gentleman, who appears much older than his stated age. He is on BiPAP. He is nonverbal, but eyes are awake. 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 He has very weak movement of both feet. He has a dialysis catheter. I cannot evaluate his oropharynx. He has no JVD. LUNGS: His lungs show coarse rhonchi with shallow efforts, even on BiPAP. I do not hear any wheezes. HEART: Regular rate and rhythm. ABDOMEN: Soft. There is no organomegaly. EXTREMITIES: He has trace edema. He has no cyanosis or clubbing. He has sonogram with duplex showing possible abnormal waveform of the left ulnar artery and high velocity changes in the left subclavian suggesting possible stenosis. LABORATORY DATA: Blood gas; pH 7.44, pCO2 of 28, pO2 of 43, obtained on 60 L high-flow nasal cannula. PT and INR are normal. White count 17,100, hemoglobin is 9.9, hematocrit is 31, platelet count 177,000. Electrolytes include sodium 138, potassium 4, chloride 103, CO2 is 22, BUN 33, creatinine 2.7. DIAGNOSTIC DATA: Chest x-ray shows moderate effusions with slightly improved aeration bilaterally. IMPRESSION: 1. Chronic obstructive pulmonary disease, advanced with evidence of hypoxic respiratory failure. The patient is currently receiving BiPAP at fairly decent pressures, but without adequate oxygenation even at 80%. He seems to be fatiguing. I am suspicious that he may progress to come to the point of absolute respiratory failure in the upcoming hours. I have had a long conversation with the family regarding additional resuscitative measures and at this point, they declined intubation. 2. Acute renal failure, stable, having received dialysis. 3. Prior stroke with left hemiparesis. PLAN: We will continue BiPAP, although I have increased him from 16/8 to 18/ 10. I have had a conversation with the family about resuscitative status. We will continue current supportive levels, although I am not very optimistic about his recovery of status in the next 24 hours. Critical care rendered today for Mr. Fraser totaling 30 minutes of direct patient care, consultation with the family, and review of medical documentation. Job ID: [id number] [facility]
[2020-02-14] MEDS: Cefepime 1 GM in Sodium Chloride 0.9% 100 ML IVPB SCH (14:55)
[2020-02-14] MEDS ORDERED: Morphine 4 MG/ML VIAL FS PRN ×2 (16:13→16:37)
[2020-02-14] MEDS ORDERED: Nitroglycerin 0.4 MG TAB (25 Tab Bottle) SL SCH (16:15)
[2020-02-14] MEDS ORDERED: Morphine 4 MG/ML VIAL ONE ×2 (16:21→16:42)
[2020-02-14] MEDS: Morphine 4 MG/ML VIAL FS SCH ×3 (17:08→17:55)
--- NOTE | 2020-02-14 17:08 | PRG ---
DATE OF SERVICE: 02/14/2020 The family has contacted us and now and affirms his DNR status. They have had multiple conversations amongst themselves and now wish to honor his request and discontinue support and provide comfort measures. They have arrived at the intensive care unit. DNR order has been written. He has been removed from the BiPAP. Multiple family members are present and all confirmed his DNR status and wish all possible comfort measures be provided. He is on oxygen. I have continued morphine IV and we will increase both the frequency and amount as necessary, up to as much as every 15 minutes. I have also initiated morphine nebs to help with some of his dyspnea. His saturations fairly rapidly have fallen into the 60s. He is still awake and communicating with family. I do not expect that he will live long. In addition to previous care, total critical care time for today totals 45 minutes critical care. Job ID: [id number] [facility]TDD
--- NOTE | 2020-02-14 18:38 | PDOC.HOSPP ---
- Subjective Encounter Date: 02/14/20 Encounter Time: 15:00 Subjective: Patient seen and examined for resp failure. SOB +. Intermittent confusion. No overnight events - Objective Vital Signs & Weight: Vital Signs (12 hours) Temp Pulse Resp Pulse Ox 02/14/20 14:40 99 24 H 94 L 02/14/20 12:00 97.8 F 02/14/20 11:01 98 29 H 92 L 02/14/20 08:00 94 L 02/14/20 07:06 99 32 H 97 02/14/20 07:00 97.5 F L Weight Admit Weight 132 lb 15.02 oz Weight 167 lb 8.821 oz Most Recent Monitor Data Heart Rate from ECG 96 NIBP 93/58 NIBP BP-Mean 69 Respiration from ECG 23 SpO2 80 I&O: 02/13/20 02/14/20 02/15/20 06:59 06:59 06:59 Intake Total 1139 825 Output Total 1013 330 335 Balance 126 495 -335 Result Diagrams: 02/14/20 03:40 02/14/20 03:40 Additional Labs: Accuchecks 02/14/20 02/14/20 02/13/20 11:28 06:13 23:51 POC Glucose 189 H 215 H 191 H 02/13/20 16:43 POC Glucose 171 H Radiology Reviewed by me: Yes (CXR - reviewed) EKG Reviewed by me: Yes (Tele ST) Hospitalist ROS - Review of Systems ROS unobtainable: due to mental status - Medication Medications: Active Medications Generic Name Dose Route Start Last Admin Trade Name Freq PRN Reason Stop Dose Admin Albuterol/Ipratropium 3 ml 02/13/20 07:00 02/14/20 14:40 Duoneb EZPAP 3 ml [id number] SAJAN Administration Carvedilol 3.125 mg 02/12/20 17:00 02/14/20 16:55 Coreg PO Not Given BID-WM SAJAN Cefepime HCl 1 gm/ Sodium 100 mls @ 200 mls/hr 02/09/20 13:00 02/14/20 14:55 Chloride IVPB 100 mls 1300 SAJAN Administration Diltiazem HCl 125 mg/ 125 mls @ 0 mls/hr 02/10/20 18:00 02/10/20 18:10 Miscellaneous Medication 1 IVPB 125 mls each/ Sodium Chloride INF SAJAN Administration Protocol As Directed Amiodarone HCl 450 mg/ 259 mls @ 0 mls/hr 02/10/20 19:40 02/14/20 11:56 Miscellaneous Medication 1 IVPB 259 mls each/ Dextrose/Water INF SAJAN Administration Protocol As Directed Magnesium Sulfate 1 gm/ Sodium 102 mls @ 102 mls/hr 02/11/20 09:27 02/14/20 05:21 Chloride IV 102 mls PRN PRN Administration MAG LEVEL 1.4 - 2.0 Potassium Phosphate 9 mmol/ 103 mls @ 25.75 mls/hr 02/11/20 09:27 02/12/20 17 :52 Sodium Chloride IVPB 103 mls ASDIR PRN Administration Phosphate 1.0-1.8 Insulin Human Regular 0 units 02/09/20 07:51 02/14/20 06:13 Humulin R SC 4 unit .MODERATE SLIDING SC PRN Administration Moderate Correctional Scale Miscellaneous Medication 1 pkt 02/11/20 09:27 02/12/20 05:57 Phos-Nak PO 1 pkt TIDPRN PRN Administration FOR PHOS LEVEL 1.0 - 1.8 Morphine Sulfate 2 mg 02/12/20 23:20 02/14/20 16:10 Morphine SLOW IVP 2 mg Q1H PRN Administration Pain Morphine Sulfate 4 mg 02/14/20 17:15 02/14/20 17:55 Morphine FS 4 mg Q15MIN SAJAN Administration Pantoprazole Sodium 40 mg 02/09/20 09:00 02/14/20 08:41 Protonix IVP 40 mg DAILY SAJAN Administration Potassium Chloride 40 meq 02/11/20 09:27 02/12/20 05:57 Klor-Con PER TUBE 40 meq ASDIR PRN Administration FOR SERUM K+ 2.5-3.5 Sodium Chloride 10 ml 02/08/20 15:42 02/09/20 09:27 Normal Saline Pf FS 10 ml PRN PRN Administration RECONSTITUTION Sodium Chloride 10 ml 02/13/20 21:00 02/14/20 08:53 Flush - Normal Saline IVF 10 ml Q12HR SAJAN Administration - Exam General Appearance: ill appearing General - other findings: in Resp distress - on NIPPV Heart: no gallops, no rubs Respiratory: rales, rhonchi, tachypneic, wheezes Gastrointestinal: soft, no guarding, no rigidity Extremities: no cyanosis, no clubbing Psychiatric: not oriented Hosp A/P - Plan DVT proph w/SCDs Severe Sepsis/Septic shock due to Pneumonia ?gram negative Acute hypoxic resp failure s/p mechanical ventilation PAULETTE with severe hyperkalemia/metabolic-lactic acidosis - started on hemodialysis Afib with RVR - on Amiodarone drip HTN DM2 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
[2020-02-14] MEDS ORDERED: Enoxaparin Sodium 30 MG/0.3 ML SYRINGE SC SCH (21:00)
[2020-02-15] MEDS: Morphine 4 MG/ML VIAL FS SCH (00:24)
[2020-02-15] MEDS: Morphine 2 MG/ML SYRINGE SLOW IVP PRN ×2 (03:11→06:18)
[2020-02-15] MEDS: Pantoprazole 40 MG VIAL IVP SCH (07:12)
[2020-02-15] MEDS: Carvedilol 3.125 MG TAB PO SCH (07:12)
[2020-02-15 08:00] VITALS: BP 98/63; TEMP 98
--- NOTE | 2020-02-15 08:02 | RAD ---
RADIOGRAPH CHEST 1 VIEW: DATE: 02/15/2020 TIME: 7:06 AM HISTORY: 64-year-old male follow-up pneumonia COMPARISON: 02/14/2020 FINDINGS: Dense consolidation of lower half to lower two thirds of left lung. Severe alveolar infiltrates throu ghout almost the entire right lung, with relative sparing of right apex, and to a lesser degree left upper lobe, with relative sparing of left apex. These right-sided alveolar infiltrates have beco me more dense. Right subclavian central line remains. Bilateral pleural effusions. The right of pleural effusion appears larger now. This may represent an actual increase in volume or shift in pleu ral effusion due to patient position change. No pneumothorax. IMPRESSION: 1. Bilateral pleural effusions. They may have increased in size. 2. Dense consolidation of left mid and lower lung zones. 3. Diffuse alveolar infiltrates throughout the rest of the lungs. These have worsened on the right.
--- NOTE | 2020-02-15 08:36 | PRG ---
DATE OF SERVICE: 02/15/2020 SUBJECTIVE: Mr. Fraser is a 64-year-old white male, who was initially admitted for acute respiratory failure and acute renal injury. Over the subsequent days, he was placed on dialysis due to the hyperkalemia and renal dysfunction. Yesterday, the patient's family as well as the patient has decided to withdraw treatment. For that reason, he did not receive dialysis. This morning, he looks comfortable. OBJECTIVE: VITAL SIGNS: Blood pressure is 98/63, heart rate 99, respiratory rate 21, temperature 98, O2 saturation 71%. GENERAL: The patient is unresponsive, but comfortable, not in distress. SKIN: Adequate turgor. HEENT: Pinkish conjunctivae. Anicteric sclerae. NECK: No neck mass. No carotid bruits. No JVD. LUNGS: Harsh breath sounds. HEART: Normal sinus rhythm. ABDOMEN: Globular, soft, nontender. No masses. EXTREMITIES: No edema. No deformities. LABORATORY DATA: On February 15, 2020, none done. ASSESSMENT AND PLAN: Acute respiratory failure-no evidence of renal recovery at the present time. As per the patient and family's request, the patient has withdrawn treatment. We will discontinue dialysis. We will be signing off. Please call if needed. Job ID: [id number]
--- NOTE | 2020-02-16 10:46 | DIS ---
DATE OF ADMISSION: 02/08/2020 DATE OF DISCHARGE: 02/15/2020 DATE : February 15, 2020, at 10:47 a.m. BRIEF HOSPITAL COURSE: The patient is a 64-year-old male with hypertension, diabetes mellitus type 2, CVA with residual left-sided weakness, was brought in on February 08, 2020, with unresponsiveness. He was found to have a pH of 6.9 with potassium of 8.1, bicarbonate of 8, and creatinine of 10.77 with lactic acid of 8.7. He was started on emergent hemodialysis. He was placed on mechanical ventilation along with Levophed and epinephrine drips. He also was started on broad- spectrum antibiotics along with IV fluids. He was closely monitored in the intensive care unit. He was subsequently extubated on February 12, 2020. His dialysis was managed by Dr. Cruz. Postextubation, the patient's condition gradually declined. He was started on noninvasive positive-pressure ventilation. After discussing with the family, he was made to not resuscitate with comfort care. The patient this morning at 10:47 a.m. Family was present in the room at that time. FINAL DIAGNOSES: 1. Severe sepsis/septic shock due to pneumonia, suspected gram negative. 2. Acute hypoxic respiratory failure, status post mechanical ventilation. 3. Acute kidney injury with severe hyperkalemia. 4. Metabolic/lactic acidosis. 5. Status post hemodialysis in this admission. 6. Atrial fibrillation with rapid ventricular response. The patient was evaluated by Cardiology and was placed on amiodarone drip. 7. Hypertension. 8. Diabetes mellitus, type 2. 9. History of tobacco abuse. 10. History of cerebrovascular accident with left-sided weakness. 11. Superficial left upper extremity thrombosis. 12. Hypophosphatemia. Job ID: [id number] [facility]
[2020-02-16 15:13] LABS: Cytoplasmic (C-ANCA) <1:20 titer (Neg:<1:20); Myeloperoxidase AutoAbs <9.0 U/mL (0.0-9.0); Perinuclear (P-ANCA) <1:20 titer (Neg:<1:20); Proteinase-3 AutoAbs Less than 3.5 U/mL (0.0-3.5)
--- NOTE | 2020-02-17 06:30 | PQF ---
ALESSANDRO HEART MD [id number] CLINICAL DOCUMENTATION CLARIFICATION FORM: POST DISCHARGE Addendum to original discharge summary date: ____ Late entry note date: __ DATE: 02/17/2020 ATTN: ALESSANDRO RAMIREZ Please exercise your independent, professional judgment in responding to the clarification form. Clinical indicators are provided on the bottom of this form for your review Please check appropriate box(s) to clarify if the following diagnosis has been ruled in or ruled out: CHF [ ] Ruled in diagnosis [ ] Continue to treat [ ] Resolved [ x ] Ruled out diagnosis [ ] Cannot rule out diagnosis [ ] Other diagnosis [ ] Unable to determine If Ruled in please specify acuity and type: Acuity [ ] Acute [ ] Chronic [ ] Acute on Chronic Type [ ] Systolic [ ] Diastolic [ ] Combined HF In addition, please specify: Present on Admission (POA): [ ] Yes [ ] No [ ] Unable to determine For continuity of documentation, please document condition throughout progress notes and discharge summary. Thank You. CLINICAL INDICATORS - SIGNS / SYMPTOMS / LABS "found to have multifocal pneumonia/CHF" - 02/[address] Cruz LVEF 55-60% - TTE 02/11/2020 small peripheral effusion - CXR 02/11/2020 BNP 142.2 - Labs 02/08/2020 Report cough ans SOB - ED Notes 02/07 no JVD - Consult 02/09 Minimal ankle edema - PN 02/12 Chest:Diminished breasth sounds bilaterally - HP 02/09 RISK FACTORS 64 years old - 02/[address] Palmer Hypertension - 02/[address] Palmer DM Type 2 - 02/[address] Palmer Sepsis with septic shock - 02/[address] Palmer Acute hypoxic respiratory failure - 02/[address] Palmer Acute kidney injury - 02/[address] Palmer Afib DS 02/14 HLD - ED Notes 02/07 Smoker - ED Notes 02/07 Alcohol abuse PN 02/12 TREATMENTS TTE - 02/11/2020 Dialysis - 02/07, 02/08, 02/11 Mechanical ventilation DS 02/14 Cardiology consult DS 02/14 Chest Xray Collected 02/07 Epinephrine 1mg IV MAR 02/07 Carvedilol 3.125mg Oral DEC 03 (This form is maintained as a part of the permanent medical record) 2014 [employer] All Rights Reserved [email or web address]
--- NOTE | 2020-02-17 06:34 | PQF ---
ALESSANDRO HEART MD [id number] CLINICAL DOCUMENTATION CLARIFICATION FORM: POST DISCHARGE Addendum to original discharge summary date: ____ Late entry note date: __ DATE: 02/17/2020 ATTN: Lukasz Palmer Please exercise your independent, professional judgment in responding to the clarification form. Clinical indicators are provided on the bottom of this form for your review Please check appropriate box(s): [ x ] Encephalopathy: Etiology: [ x ] Metabolic [x ] Toxic [ ] Hypoxic [ ] Septic [ ] Unspecified [ ] Other (please specify) [ ] Transient Alteration of Awareness [ ] Other diagnosis [ ] Unable to determine In addition, please specify: Present on Admission (POA): [ x] Yes [ ] No [ ] Unable to determine For continuity of documentation, please document condition throughout progress notes and discharge summary. Thank You. CLINICAL INDICATORS - SIGNS / SYMPTOMS / LABS "patient was found obtunded" - 02/[address] Palmer "remains lethargic" - 02/[address] Palmer "+ intermittent confusion" - 02/[address] Martinez "During the night, the patient had worsening obtundation and a blood gas has shown worsening hypoxia" - 02/[address] Gallardo renal dysfunction - PN 02/14 lactic acidosis - PN 02/13 RISK FACTORS 64 years old - 02/[address] Palmer Old CVA - 02/[address] Gallardo Hypertension - 02/[address] Palmer DM Type 2 - 02/[address] Palmer Sepsis with septic shock - 02/[address] Palmer Acute hypoxic respiratory failure - 02/[address] Palmer Acute kidney injury - 02/[address] Palmer Smoker - ED Notes 02/07 Alcohol abuse PN 02/12 Hyperkalemia PN 02/12 TREATMENTS: Vancomycin Hcl 1.5mg 300mL @ 200mL/hr IVPB - 02/07 MAR Sodium Chloride 1000m: @ 100mL/hr IV - 02/07 Electrolyte monitoring and replacement PN 02/12 IVF DEC 03 Epinephrine 1mg IV DEC 03 (This form is maintained as a part of the permanent medical record) 2014 [employer] All Rights Reserved [email or web address]
--- NOTE | 2020-02-17 06:36 | PQF ---
ALESSANDRO HEART MD [id number] CLINICAL DOCUMENTATION CLARIFICATION FORM: POST DISCHARGE Addendum to original discharge summary date: ____ Late entry note date: __ Date: 02/17/2020 ATTN: Lukasz Palmer Please exercise your independent, professional judgment in responding to the clarification form. Clinical indicators are provided on the bottom of this form for your review Please check appropriate box(s): [ ] Protein Calorie Malnutrition: [ ] Mild [ x ] Moderate [ ] Severe [ ] Other Malnutrition (please specify) __ [ ] Underweight without malnutrition [ ] Cachexia [ ] Other diagnosis [ ] Unable to determine In addition, please specify: Present on Admission (POA): [ x] Yes [ ] No [ ] Unable to determine CLINICAL INDICATORS - SIGNS / SYMPTOMS / LABS BMI of 28.1 - Registered Dietitian 02/12 Labs Albumin: 02/07=3.1 02/08=2.7 02/09=2.4 Labs Total Protein: 02/07=4.9 02/08=4.6 02/09=4.6 Two or More of the Following: Insufficient Energy Intake, pt is NPO - Registered Dietitian 02/12 25% Weight Loss - Registered Dietitian 02/12 Mild-moderate fat and muscle depletion - Registered Dietitian 02/12 RISK FACTORS NPO status - Registered Dietitian 02/12 64 years old - 02/[address] Palmer Hypertension - 02/[address] Palmer DM Type 2 - 02/[address] Palmer Sepsis with septic shock - 02/[address] Palmer Acute hypoxic respiratory failure - 02/[address] Palmer Acute kidney injury - 02/[address] Palmer Smoker - ED Notes 02/07 Alcohol abuse PN 02/12 TREATMENT: Dietary consult - Registered Dietitian 02/12 Nutritional supplements - Registered Dietitian 02/12 IVF - Registered Dietitian 02/12 Monitor for weight change - Registered Dietitian 02/12 Monitor for total intake - Registered Dietitian 02/12 Moderate Malnutrition (in acute illness) Energy Intake: <75% of estimated energy requirement for > 7 days Weight Loss: 1-2%/1 week; 5%/ 1 month; 7.5%/3 months Other: mild body fat loss; mild muscle mass loss; mild fluid accumulation; Severe Malnutrition (in acute illness) Energy Intake: < 50% of estimated energy requirement for > 5 days Weight Loss: >1-2%/1 week; >5%/1 month; >7.5%/3 months Other: moderate body fat loss; moderate muscle mass loss; moderate- severe fluid accumulation; measurably reduced optical mechanic apprentice strength Moderate Malnutrition (in chronic illness) Energy Intake: <75% of estimated energy requirement for >1 month Weight Loss: 5%/1 month; 7.5%/3 months; 10%/6 months; 20%/1 year Other: mild body fat loss; mild muscle mass loss; mild fluid accumulation Severe Malnutrition (in chronic illness) Energy Intake: <75% of estimated energy requirement for >1 month Weight Loss: >5%/1 month; >7.5%/3 months; >10%/6 months; >20%/1 year Other: severe body fat loss; severe muscle mass loss; severe fluid accumulation ; measurably reduced optical mechanic apprentice strength (This form is maintained as a part of the permanent medical record) 2014 [employer]. All Rights Reserved [email or web address]
--- NOTE | 2020-02-17 06:39 | PQF ---
ALESSANDRO HEART MD [id number] CLINICAL DOCUMENTATION CLARIFICATION FORM: POST DISCHARGE Addendum to original discharge summary date: ____ Late entry note date: __ DATE: 02/17/2020 ATTN: Lukasz Palmer Please exercise your independent, professional judgment in responding to the clarification form. Clinical indicators are provided on the bottom of this form for your review Please check appropriate box(s): [ ] Acute on chronic kidney failure with ATN In addition, please specify CKD stage: [ ] Stage I [ ] Stage II [ ] Stage III [ ] Stage IV [ ] Stage V [ ] ESRD [ x] Acute kidney failure with ATN only [ ] Other diagnosis [ ] Unable to determine For continuity of documentation, please document condition throughout progress notes and discharge summary. Thank You. CLINICAL INDICATORS - SIGNS / SYMPTOMS/ LABS are present in the medical record: Acute kidney injury - 02/07 Dr. Palmer Labs BUN: 02/07 - 135, 48, 02/08 - 52, 02/09 - 37, 02/11 - 38, 02/13 - 33 Labs Crea: 02/07 - 10.77, 4.17, 02/08 - 4.50, 02/09 - 3.02, 02/10 - 2.02, 02/11 - 2.54, 02/12 - 2.09, 02/13 - 2.76 Labs GFR: 02/07 - 5, 15, 02/08 - 13, 02/09 - 21, 02/10 - 34, 02/11 - 26, 02/12 - 32, 02/13 - 23 renal dysfunction - PN 02/14 SOB - PN 02/13 Intermittent confusion - PN 02/13 lactic acidosis - PN 02/13 Remains lethargic - PN 02/12 Minimal ankle edema - PN 02/12 RISK FACTORS 64 years old - 02/[address] Palmer Hypertension - 02/[address] Palmer DM Type 2 - 02/[address] Palmer Sepsis with septic shock - 02/[address] Palmer Acute hypoxic respiratory failure - 02/[address] Palmer Afib DS 02/14 HLD - ED Notes 02/07 Smoker - ED Notes 02/07 Alcohol abuse PN 02/12 Hyperkalemia PN 02/12 TREATMENT Hemodialysis 02/07, 02/08, 02/11 Reel Stripper consult PN 02/12 Electrolyte monitoring and replacement PN 02/12 IVF MAR 02/07 Epinephrine 1mg IV MAR 02/07 (This form is maintained as a part of the permanent medical record) 2014 [employer]. All Rights Reserved [email or web address]
== END 2020-02-15 10:47 | disposition expired | DRG 870 ==
LOC: ERS 12:09 → CCU 15:17 → T4-B 02-14 20:10
PROVIDERS: ADMIT Family Medicine; ATTEND Family Medicine
PROC: 5A1955Z Respiratory Ventilation, Greater than 96 Consecutive Hours (ICD-10-PCS; 2020-02-08)
PROC: 3E033XZ Introduction of Vasopressor into Peripheral Vein, Percutaneous Approach (ICD-10-PCS; 2020-02-08)
PROC: 05H533Z Insertion of Infusion Device into Right Subclavian Vein, Percutaneous Approach (ICD-10-PCS; 2020-02-08)
PROC: 5A1D70Z Performance of Urinary Filtration, Intermittent, Less than 6 Hours Per Day (ICD-10-PCS; 2020-02-08)
PROC: 8E0ZXY6 Isolation (ICD-10-PCS; 2020-02-08)
PROC: 5A09357 Assistance with Respiratory Ventilation, Less than 24 Consecutive Hours, Continuous Positive Airway Pressure (ICD-10-PCS; principal; 2020-02-14)
DX: A41.9 Sepsis, unspecified organism (principal); R65.21 Severe sepsis with septic shock; J96.01 Acute respiratory failure with hypoxia; N17.0 Acute kidney failure with tubular necrosis; J15.6 Pneumonia due to other Gram-negative bacteria; G92 Toxic encephalopathy; E87.2 Acidosis; I69.354 Hemiplegia and hemiparesis following cerebral infarction affecting left non-dominant side; J44.0 Chronic obstructive pulmonary disease with (acute) lower respiratory infection; I82.612 Acute embolism and thrombosis of superficial veins of left upper extremity; E44.0 Moderate protein-calorie malnutrition; Z66 Do not resuscitate; Z20.828 Contact with and (suspected) exposure to other viral communicable diseases; Z51.5 Encounter for palliative care; E11.9 Type 2 diabetes mellitus without complications; E78.5 Hyperlipidemia, unspecified; F10.10 Alcohol abuse, uncomplicated; E87.5 Hyperkalemia; I10 Essential (primary) hypertension; F17.210 Nicotine dependence, cigarettes, uncomplicated; E86.9 Volume depletion, unspecified; I48.91 Unspecified atrial fibrillation; E87.6 Hypokalemia; D64.9 Anemia, unspecified; E83.39 Other disorders of phosphorus metabolism; E87.70 Fluid overload, unspecified; R13.10 Dysphagia, unspecified; Z78.1 Physical restraint status; Z79.899 Other long term (current) drug therapy; Z79.02 Long term (current) use of antithrombotics/antiplatelets; Z79.84 Long term (current) use of oral hypoglycemic drugs; Z68.28 Body mass index [BMI] 28.0-28.9, adult
CPT/HCPCS: 36415; 36416; 36556; 51703; 70450; 71045; 72125; 76770; 80048; 80053; 81001; 82550; 82570; 82805; 83520; 83605; 83735; 83880; 84100; 84300; 84484; 85025; 85060; 85610; 85730; 86038; 86225; 86256; 87040; 87340; 87635; 90935; 93005; 93010; 93306; 93923; 94002; 94003; 94640; 94660; 96365; 96366; 96367; 96368; 96375; 99292; C1752; C9113; G0257; J0171; J0282; J0692; J1160; J1644; J1815; J1956; J2060; J2270; J2704; J3370; J3411; J3475; J3490; J7050; J7070; J7608; J7611; J7620; P9045; P9047; U0003